=== PATIENT | female | born 1935 | race Caucasian/White ===

== ENCOUNTER → 2018-02-25 11:31 | Outpatient (CLI) | payer OTHER, SELFPAY ==
[2018-02-25 12:53] LABS: Add Manual Diff / Slide Review NO; Basophils Percent Auto 1.3 % (0-2); Hemoglobin 14.7 g/dL (12.0-16.0); Lymphocytes Percent Auto 27.4 % (25-40); Mean Corpuscular HGB Conc 34.1 % (30-36); Mean Corpuscular Hemoglobin 35.5 PG (26-34); Mean Corpuscular Volume 104.2 fL (80-100); Monocytes Percent Auto 10.8 % (3-14); Neutrophils Absolute Auto 3100 /uL (3000-5900); Neutrophils Percent Auto 53.5 % (50-75); Platelet Count 286 X10^3/uL (150-400); Red Blood Cell Count 4.13 X10^6/uL (4.0-5.2); Red Cell Distribution Width 13.3 % (11.6-14.8); White Blood Cell Count 5.8 X10^3/uL (4.5-11.0)
[2018-02-25 13:03] LABS: Alanine Aminotransferase 28 IU/L (9-52); Albumin 4.2 g/dL (3.5-5.0); Albumin Globulin Ratio 1.4 (1.0-2.8); Alkaline Phosphatase 45 U/L (38-126); Aspartate Aminotransferase 35 IU/L (14-36); BUN Creatinine Ratio 23.6 (6-22); Bilirubin Total 0.6 mg/dL (0.2-1.3); Estimated Glomerular Filt Rate 47.6 mL/min (>60); Glucose 89 mg/dL (80-110); HEMOLYSIS 15 (0-50); Potassium 3.8 mmol/L (3.4-5.1); Sodium 143 mmol/L (137-145); Total Protein 7.2 g/dL (6.3-8.2)
== END ==
PROVIDERS: Family Provider Family Medicine; PCP Family Medicine; Visit Provider Internal Medicine Hematology & Oncology
DX: D46.9 Myelodysplastic syndrome, unspecified (principal)
CPT/HCPCS: 36415; 80053; 85025

== ENCOUNTER → 2018-06-20 14:25 | Outpatient (CLI) | payer OTHER, SELFPAY ==
--- NOTE | 2018-06-20 | DI.US.S_ITS ---
PROCEDURE: US ARTERIAL DUPLEX LE BI INDICATIONS: BILATERAL LOWER EXTREMITY NUMBNESS AND TINGLING TECHNIQUE: Color and pulse Doppler interrogation was performed of both lower extremity arterial systems, with image documentation. COMPARISON: None. FINDINGS: Right lower extremity: Common femoral artery: 117 cm/sec, with biphasic flow. Deep femoral artery: 68 cm/sec, with biphasic flow. Proximal superficial femoral artery: 152 cm/sec, with biphasic flow. Mid superficial femoral artery: 143 cm/sec, with biphasic flow. Distal superficial femoral artery: 116 cm/sec, with biphasic flow. Popliteal artery: 72 cm/sec, with biphasic flow. Posterior tibial artery: 61 cm/sec, with biphasic flow. Anterior tibial artery/dorsalis pedis: Occluded Grace-scale imaging description: Scattered plaque Left lower extremity: Common femoral artery: 179 cm/sec, with biphasic flow. Deep femoral artery: 80 cm/sec, with biphasic flow. Proximal superficial femoral artery: 107 cm/sec, with biphasic flow. Mid superficial femoral artery: 124 cm/sec, with biphasic flow. Distal superficial femoral artery: 97 cm/sec, with biphasic flow. Popliteal artery: 93 cm/sec, with biphasic flow. Posterior tibial artery: 66 cm/sec, with biphasic flow. Anterior tibial artery/dorsalis pedis: 51 cm/sec, with biphasic flow. Grace-scale imaging description: Scattered plaque IMPRESSION: 1. Occluded right anterior tibial artery. 2. Otherwise no evidence of arterial insufficiency to the bilateral lower extremities. Dictated by: Mallorie Quesada M.D. on 06/20/2018 at 16:57 Approved by: Mallorie Quesada M.D. on 06/20/2018 at 16:59
== END ==
PROVIDERS: Family Provider Family Medicine; PCP Family Medicine; Visit Provider Family Medicine
DX: R20.0 Anesthesia of skin (principal); R20.2 Paresthesia of skin; I77.1 Stricture of artery
CPT/HCPCS: 93925

== ENCOUNTER → 2019-02-28 14:20 | Oncology outpatient (ONC) | payer OTHER, SELFPAY ==
[2018-03-01 11:52] VITALS: BP 151/73; PULSE 80; RESP 16; TEMP 36.6; O2SAT 97
--- NOTE | 2018-03-01 12:07 | P.PNONC_ITS ---
Diagnosis (1) Myelodysplastic syndrome Diagnosis: 1. History of low-grade myelodysplastic syndrome, IPS score 0. Original bone marrow examination on 09/17/2011. Observation only pursued. 2. History of depression. 3. Hypercholesterolemia. 4. Hypertension. History of Present Illness History Of Present Illness: 03/01/18 12:04 Laine returns today for routine follow-up. Her last visitation here was 1 year ago. She has remained largely stable in the interim. She reports good days and bad days regarding her overall strength and stamina. She denies any dyspnea on exertion. Her recent appetite has been great. She continues to live alone. She has 3 grown children, who live in [place], [place] and [place]. She acknowledges overall that she has been slowing down in recent years. She currently denies any depression. Home Medications and Allergies Home Medications Medication Instructions Recorded Confirmed Type CA PANTOTHENATE/FOLIC ACID/VIT 1 tab PO QDAY #0 03/09/13 History (MULTIVITAMIN) CALCIUM CITRATE (CITRACAL ) 200 mg PO AMCC #0 03/09/13 History FERROUS SULFATE 325 mg PO Q DAY #0 03/09/13 History FOLIC ACID (Folic Acid) 1 mg PO Q DAY #0 03/09/13 History Pyridoxine (#VITAMIN B6) 100 mg PO Q DAY #0 03/09/13 History aspirin #0 03/09/13 History atorvastatin [Lipitor] 5 mg PO HS #0 03/09/13 History cetirizine 10 mg PO PRN #0 03/09/13 History citalopram [Celexa] 20 mg PO QDAY #0 03/09/13 History amlodipine [Norvasc] 5 mg PO QDAY #0 03/02/17 History calcitonin (salmon) 1 puff NS QDAY #0 03/02/17 History cholecalciferol (vitamin D3) 1,000 unit PO DAILY 03/01/18 03/01/18 History [Vitamin D3] mirtazapine [Remeron] 30 mg PO BEDTIME 03/01/18 03/01/18 History nystatin 1 applic TOPICAL TID 03/01/18 03/01/18 History Allergies Allergy/AdvReac Type Severity Reaction Status Date / Time Penicillins Allergy Severe I SWELL Unverified 01/12/18 11:46 UP, HEAVY BREATHING Exam Vital Signs: Vital Signs - 24 hr 03/01/18 11:52 Temperature 97.8 F Pulse Rate 80 Respiratory Rate 16 Blood Pressure 151/73 H Pulse Oximetry 97 Exam: Blood pressure 151/73. Pulse rate 80. Temperature 97.4?. O2 saturation on room air was 97%. Weight 137 lb. Her pupils today were equal and reactive to light. The oropharynx was clear. Both lungs were clear to auscultation and percussion. She displayed no direct percussible spinal tenderness. There is no palpable rib cage tenderness. No pathologic lymphadenopathy was noted today in the neck, chin, supraclavicular or axillary areas. Her abdomen was soft, nontender and without palpable mass effect. Her heart sounds were fine. There was no distal edema. Impression Laine's CBC looks great today. All of her numbers remain very stable. I am quite comfortable today recommending continued surveillance on a yearly basis. I wished her well.
[2019-02-20 13:20] LABS: Add Manual Diff / Slide Review NO; Basophils Absolute Auto 100 /uL (0-100); Eosinophils Absolute Auto 400 /uL (0-450); Eosinophils Percent Auto 5.5 % (2-4); Hematocrit 45.3 % (36-46); Hemoglobin 15.1 g/dL (12.0-16.0); Lymphocytes Absolute Auto 1600 /uL (1100-4500); Lymphocytes Percent Auto 23.7 % (25-40); Mean Corpuscular HGB Conc 33.3 % (30-36); Mean Corpuscular Hemoglobin 34.9 PG (26-34); Mean Corpuscular Volume 104.9 fL (80-100); Monocytes Absolute Auto 700 /uL (0-900); Monocytes Percent Auto 10.9 % (3-14); Neutrophils Absolute Auto 3900 /uL (1500-7000); Neutrophils Percent Auto 58.9 % (50-75); Platelet Count 238 X10^3/uL (150-400); Red Blood Cell Count 4.32 X10^6/uL (4.0-5.2); White Blood Cell Count 6.6 X10^3/uL (4.5-11.0)
[2019-02-20 13:36] LABS: Alanine Aminotransferase 16 IU/L (9-52); Albumin 4.4 g/dL (3.5-5.0); Albumin Globulin Ratio 1.4 (1.0-2.8); Alkaline Phosphatase 46 U/L (38-126); Aspartate Aminotransferase 29 IU/L (14-36); BUN Creatinine Ratio 29.1 (6-22); Bilirubin Total 0.6 mg/dL (0.2-1.3); Blood Urea Nitrogen 32 mg/dL (7-17); Calcium 9.6 mg/dL (8.4-10.2); Carbon Dioxide 27 mmol/L (22-32); Chloride 103 mmol/L (98-107); Estimated Glomerular Filt Rate 47.4 mL/min (>60); Globulin 3.1 g/dL (1.7-4.1); Glucose 97 mg/dL (80-110); HEMOLYSIS 17 (0-50); Sodium 138 mmol/L (137-145); Total Protein 7.5 g/dL (6.3-8.2)
[2019-02-28 14:33] VITALS: BP 148/69; PULSE 65; RESP 18; TEMP 36.4; O2SAT 100
--- NOTE | 2019-02-28 14:43 | P.PNONC_ITS ---
PN -Subjective Interval history: 83-year-old white female with history of low-grade myelodysplastic syndrome, IPSS score 0, had bone marrow aspiration biopsy on 09/17/2011. She has been on active surveillance since. Patient presents here today for scheduled follow-up visit. Patient reported that since her last visit, patient has not had any new changes. Patient reports that she has no nausea or vomiting, no shortness of breath, no chest pain, no abdominal pain, no diarrhea, no constipation. Patient said that she has gained a couple of lb over last 1 year. - Additional ROS All systems PM: reviewed and no additional remarkable complaints except as stated Home Medications and Allergies Home Medications Medication Instructions Recorded Confirmed Type CA PANTOTHENATE/FOLIC ACID/VIT 1 tab PO QDAY #0 03/09/13 History (MULTIVITAMIN) CALCIUM CITRATE (CITRACAL ) 200 mg PO AMCC #0 03/09/13 History FERROUS SULFATE 325 mg PO Q DAY #0 03/09/13 History FOLIC ACID (Folic Acid) 1 mg PO Q DAY #0 03/09/13 History Pyridoxine (#VITAMIN B6) 100 mg PO Q DAY #0 03/09/13 History aspirin #0 03/09/13 History atorvastatin [Lipitor] 5 mg PO HS #0 03/09/13 History cetirizine 10 mg PO PRN #0 03/09/13 History citalopram [Celexa] 20 mg PO QDAY #0 03/09/13 History amlodipine [Norvasc] 5 mg PO QDAY #0 03/02/17 History calcitonin (salmon) 1 puff NS QDAY #0 03/02/17 History cholecalciferol (vitamin D3) 1,000 unit PO DAILY 03/01/18 03/01/18 History [Vitamin D3] mirtazapine [Remeron] 30 mg PO BEDTIME 03/01/18 03/01/18 History nystatin 1 applic TOPICAL TID 03/01/18 03/01/18 History Allergies Allergy/AdvReac Type Severity Reaction Status Date / Time Penicillins Allergy Severe I SWELL Unverified 01/12/18 11:46 UP, HEAVY BREATHING Exam Vital signs: Last Vital Signs Temp 97.5 F L 02/28/19 14:33 Pulse 65 02/28/19 14:33 Resp 18 02/28/19 14:33 BP 148/69 H 05/28/19 14:33 Pulse Ox 100 02/28/19 14:33 ECOG 1 Narrative: Gen: WDWN, NAD, pleasant and cooperative. HEENT: NCAT, EOMI, PERRLA, anicteric sclera. Neck: Supple, No palpable thyromegaly or lymphadenopathy. Respiratory: CTAB, no wheezes audible. No JVD Cardiovascular: RRR, S1 and S2 normal, 4/6 SM aortic valve Abdomen: Soft, NTND, BS normal, no palpable organomegaly Extremities: No LE pitting edema. Lymphatic: no palpable lymph nodes in the neck, axillae, or groins. Neurological: AOx3, CN II-XII grossly intact. No focal motor or sensory deficit. Psychiatric: Normal affect; normal thought process; cooperative, no depression, no anxiety. Results - Labs Laboratory Last Values WBC 6.6 X10^3/uL (4.5-11.0) 02/20/19 13:11 RBC 4.32 X10^6/uL (4.0-5.2) 02/20/19 13:11 Hgb 15.1 g/dL (12.0-16.0) 02/20/19 13:11 Hct 45.3 % (36-46) 02/20/19 13:11 MCV 104.9 fL (80-100) H 02/20/19 13:11 MCH 34.9 PG (26-34) H 02/20/19 13:11 MCHC 33.3 % (30-36) 02/20/19 13:11 RDW 15.0 % (11.6-14.8) H 02/20/19 13:11 Plt Count 238 X10^3/uL (150-400) 02/20/19 13:11 Neut % (Auto) 58.9 % (50-75) 02/20/19 13:11 Lymph % (Auto) 23.7 % (25-40) L 02/20/19 13:11 [place] % (Auto) 10.9 % (3-14) 02/20/19 13:11 Eos % (Auto) 5.5 % (2-4) H 02/20/19 13:11 Baso % (Auto) 1.0 % (0-2) 02/20/19 13:11 Neut # (Auto) 3900 /uL (6638-1150) 02/20/19 13:11 Lymph # (Auto) 1600 /uL (7134-2866) 02/20/19 13:11 [place] # (Auto) 700 /uL (0-900) 02/20/19 13:11 Eos # (Auto) 400 /uL (0-450) 02/20/19 13:11 Baso # (Auto) 100 /uL (0-100) 02/20/19 13:11 Sodium 138 mmol/L (137-145) 02/20/19 13:11 Potassium 4.0 mmol/L (3.4-5.1) 02/20/19 13:11 Chloride 103 mmol/L (98-107) 02/20/19 13:11 Carbon Dioxide 27 mmol/L (22-32) 02/20/19 13:11 BUN 32 mg/dL (7-17) H 02/20/19 13:11 Creatinine 1.10 mg/dL (0.52-1.04) H 02/20/19 13:11 Estimated GFR 47.4 mL/min (>60) L 02/20/19 13:11 BUN/Creatinine Ratio 29.1 (6-22) H 02/20/19 13:11 Glucose 97 mg/dL (80-110) 02/20/19 13:11 Calcium 9.6 mg/dL (8.4-10.2) 02/20/19 13:11 Total Bilirubin 0.6 mg/dL (0.2-1.3) 02/20/19 13:11 AST 29 IU/L (14-36) 02/20/19 13:11 ALT 16 IU/L (9-52) 02/20/19 13:11 Alkaline Phosphatase 46 U/L (38-126) 02/20/19 13:11 Total Protein 7.5 g/dL (6.3-8.2) 02/20/19 13:11 Albumin 4.4 g/dL (3.5-5.0) 02/20/19 13:11 Globulin 3.1 g/dL (1.7-4.1) 02/20/19 13:11 Albumin/Globulin Ratio 1.4 (1.0-2.8) 02/20/19 13:11 - Imaging Additional studies: Procedures Closed [endoscopic] biopsy of rectum (06/22/12) Other resection of rectum (01/12/13) Assessment and Plan (1) Myelodysplastic syndrome 83-year-old with low-grade myelodysplastic syndrome currently on active surveillance. I reviewed the laboratory tests with the patient today. The CBC are within the good range. I will have her come back in about a year for follow-up visit. I will repeat CBC, CMP.
--- NOTE | 2019-10-09 13:18 | ONC.MSW ---
*Sent bereavement card.
== END ==
PROVIDERS: Family Provider Family Medicine; PCP Family Medicine; Visit Provider Internal Medicine Hematology & Oncology
DX: D46.Z Other myelodysplastic syndromes (principal)
CPT/HCPCS: 36415; 80053; 85025; 99213; 99215

== ENCOUNTER 2019-08-08 21:38 | Inpatient (IN) | payer OTHER, SELFPAY ==
[2019-08-08] VITALS (7 sets, daily range): BP systolic 95–140; BP diastolic 46–87; PULSE 103–130; RESP 20–30; TEMP 36.8–37.1; O2SAT 88–94; BMI 21.9
--- NOTE | 2019-08-08 21:53 | ED.SOB ---
HPI - SOB/Dyspnea General Chief Complaint: Shortness of Breath/Dyspnea Stated Complaint: Difficulty breathing Time Seen by Provider: 08/08/19 21:46 Source: patient Mode of arrival: EMS Limitations: no limitations History of Present Illness HPI Narrative: 83-year-old female brought in by EMS for evaluation of shortness of breath patient states that she has been short of breath for the past couple days. She also admitted with questioning that she has had palpitations for the past couple days as well. No chest pain. Some cough. She states that all the symptoms started after she got the flu shot as been feeling fatigued since then. No fevers. Has not tried anything for symptoms prior to arrival. Related Data Home Medications Medication Instructions Recorded Confirmed aspirin 325 mg PO DAILY #0 03/09/13 08/09/19 atorvastatin [Lipitor] 5 mg PO HS #0 03/09/13 08/09/19 calcium carbonate [Calcium 500] 1,000 mg PO DAILY #0 03/09/13 08/09/19 cetirizine 10 mg PO PRN #0 03/09/13 08/09/19 citalopram [Celexa] 20 mg PO QDAY #0 03/09/13 08/09/19 ferrous sulfate 324 mg PO DAILY #0 03/09/13 08/09/19 folic acid 1 mg PO DAILY #0 03/09/13 08/09/19 [id number] 1 cap PO DAILY #0 03/09/13 08/09/19 [Daily Multivitamin] pyridoxine (vitamin B6) 100 mg PO DAILY #0 03/09/13 08/09/19 amlodipine [Norvasc] 5 mg PO QDAY #0 03/02/17 08/09/19 calcitonin (salmon) 1 puff NS QDAY #0 03/02/17 08/09/19 cholecalciferol (vitamin D3) 1,000 unit PO DAILY 03/01/18 08/09/19 [Vitamin D3] mirtazapine [Remeron] 30 mg PO BEDTIME 03/01/18 08/09/19 nystatin 1 applic TOPICAL TID PRN 03/01/18 08/09/19 Allergies Allergy/AdvReac Type Severity Reaction Status Date / Time Penicillins Allergy Severe I SWELL Verified 08/08/19 21:48 UP, HEAVY BREATHING Review of Systems Constitutional Constitutional: Reports fatigue, Denies fever(s), Reports lethargy and Reports malaise Cardiovascular Cardiovascular: Denies chest pain, Reports rapid heart rate, Reports palpitations, Reports dyspnea and Reports dyspnea on exertion Respiratory Respiratory: Reports dyspnea and Reports dyspnea on exertion Gastrointestinal Gastrointestinal: Denies abdominal pain, Denies nausea and Denies vomiting Musculoskeletal Musculoskeletal: Denies myalgias and Denies arthralgias Integumentary/Breasts Skin/Breast: Denies rash Neurologic Neurologic: Denies behavioral changes and Denies confusion Psychiatric Psychiatric: Denies behavioral changes and Denies confusion Endocrine Endocrine: Reports fatigue and Reports palpitations Hematologic/Lymphatic Hematologic/Lymphatic: Denies easy bleeding and Denies easy bruising Patient History Medical History Facial contusion (Inactive) Fracture of neck of humerus (Inactive) Myelodysplastic syndrome (Inactive) Social History Smoking Status: Current some day smoker Exam Initial Vital Signs Initial Vital Signs: Vital Signs Temperature 98.3 F 08/08/19 21:48 Pulse Rate 109 H 08/08/19 21:48 Respiratory Rate 30 H 08/08/19 21:48 Blood Pressure 95/46 L 08/08/19 21:48 Pulse Oximetry 94 08/08/19 21:48 Const General: comfortable Orientation: alert, awake and oriented x3 HENMT Head: normal to inspection and normocephalic Resp Effort & Inspection: not labored and tachypneic Auscultation: clear to auscultation bilaterally Cardio Rate: tachycardic Rhythm: abnormal rhythm irregularly irregular Pulses: radial pulses present GI Inspection: non-distended Palpation: soft Skin Lesions: no lesions Rashes: no rashes Neuro General: alert, awake and oriented x3 Cognition: normal cognition Speech: speech normal Extrem General: normal to inspection and capillary refill normal Psych Appearance: grossly normal and well kempt Scores GCS [place] coma scale eye opening: Spontaneous [place] coma scale verbal response: Orientated Nori coma scale motor response: Obey commands Nori coma scale total score: 15 Course Orders Ordered: ED Orders 08/08/19 21:35 B Type Natriuretic Peptide Stat Complete Blood Count AUTO DIFF Stat Comprehensive Metabolic Panel Stat Lipase Stat Partial Thromboplastin Time Stat Procalcitonin Stat Prothrombin Time INR Stat Troponin I Stat 08/08/19 21:45 Influenza A and B by PCR Rapid Stat 08/08/19 21:52 XR chest 1V Stat EKG-12 Lead Stat 08/08/19 22:48 CT angio chest PE protocol Stat Sodium Chloride (Normal Saline 0.9%) 1,000 mls @ 100 mls/hr IV CONT JOSEPH Last Admin: 08/08/19 22:05 Dose: 100 mls/hr Documented by: ANNMARIE Diltiazem HCl 125 mg/ Dextrose 125 mls @ 5 mls/hr IV TITRATE JOSEPH; Protocol Last Titration: 08/08/19 23:32 Dose: 15 mg/hr, 15 mls/hr Documented by: Titration: 08/08/19 23:25 Dose: 15 mg/hr, 15 mls/hr Documented by: Titration: 08/08/19 23:05 Dose: 10 mg/hr, 10 mls/hr Documented by: Titration: 08/08/19 22:49 Dose: 10 mg/hr, 10 mls/hr Documented by: Admin: 08/08/19 22:22 Dose: 5 mg/hr, 5 mls/hr Documented by: ANNMARIE Ondansetron HCl (Zofran) 4 mg IV Q4HR PRN PRN Reason: Nausea And Vomiting Discontinued Medications Albuterol/Ipratropium (Duoneb) 3 ml INH NOW ONE Stop: 08/08/19 22:49 Last Admin: 08/08/19 22:54 Dose: 3 ml Documented by: ANNMARIE Diltiazem HCl (Cardizem) 10 mg IV NOW ONE Stop: 08/08/19 21:52 Last Admin: 08/08/19 22:05 Dose: 10 mg Documented by: ANNMARIE Furosemide (Lasix) 40 mg IV NOW ONE Stop: 08/08/19 22:49 Last Admin: 08/08/19 23:24 Dose: 40 mg Documented by: ANNMARIE Vital Signs Vital signs: Vital Signs - 8 hr 08/08/19 21:48 08/08/19 22:00 08/08/19 22:05 Temperature 98.3 F Pulse Rate 109 H 121 H 130 H Respiratory Rate 30 H 28 H Blood Pressure 95/46 L 140/87 Blood Pressure [Left Arm] 140/67 Pulse Oximetry 94 90 L 08/08/19 22:22 08/08/19 22:34 08/08/19 22:40 Temperature Pulse Rate 116 H 104 H 104 H Respiratory Rate 28 H Blood Pressure 118/65 Blood Pressure [Left Arm] 132/64 Pulse Oximetry 88 L 90 L 08/08/19 23:45 08/09/19 00:00 Temperature 98.7 F Pulse Rate 103 H 102 H Respiratory Rate 20 23 Blood Pressure Blood Pressure [Left Arm] 140/81 134/65 Pulse Oximetry 94 95 MDM - SOB/Dyspnea Medical Records Attestation: I reviewed the patient's medical records. Lab Data Attestation: I reviewed the patient's lab results. Result diagrams: 08/08/19 21:35 08/08/19 21:35 Labs: Lab Results 08/08/19 08/08/19 08/08/19 Range/Units 21:35 21:35 21:35 WBC 7.8 (4.5-11.0) X10^3/uL RBC 3.65 L (4.0-5.2) X10^6/uL Hgb 13.1 (12.0-16.0) g/dL Hct 38.8 (36-46) % MCV 106.3 H (80-100) fL MCH 36.0 H (26-34) PG MCHC 33.8 (30-36) % RDW 13.5 (11.6-14.8) % Plt Count 271 (150-400) X10^3/uL Neut % (Auto) 63.1 (50-75) % Lymph % (Auto) 20.3 L (25-40) % Rich % (Auto) 10.1 (3-14) % Eos % (Auto) 5.8 H (2-4) % Baso % (Auto) 0.7 (0-2) % Neut # (Auto) 4900 (7293-2939) /uL Lymph # (Auto) 1600 (1386-7252) /uL Rich # (Auto) 800 (0-900) /uL Eos # (Auto) 500 H (0-450) /uL Baso # (Auto) 100 (0-100) /uL PT 11.4 (10.1-12.7) SECONDS INR 1.0 (0.9-1.3) APTT 27 (26.4-36.2) SECONDS Sodium 139 (137-145) mmol/L Potassium 4.2 (3.4-5.1) mmol/L Chloride 104 (98-107) mmol/L Carbon Dioxide 28 (22-32) mmol/L BUN 26 H (7-17) mg/dL Creatinine 1.40 H (0.52-1.04) mg/dL Estimated GFR 35.9 L (>60) mL/min BUN/Creatinine Ratio 18.6 (6-22) Glucose 113 H (80-110) mg/dL Calcium 8.9 (8.4-10.2) mg/dL Total Bilirubin 0.5 (0.2-1.3) mg/dL AST 33 (14-36) IU/L ALT 15 (<35) IU/L Alkaline Phosphatase 46 (38-126) U/L Troponin I 0.016 (0.01-0.034) ng/mL B-Natriuretic Peptide 581 H (<100) Total Protein 7.1 (6.3-8.2) g/dL Albumin 4.0 (3.5-5.0) g/dL Globulin 3.1 (1.7-4.1) g/dL Albumin/Globulin Ratio 1.3 (1.0-2.8) Lipase 253 (23-300) U/L Procalcitonin (<0.5) ng/mL Influenza A & B (PCR) (Negative) 08/08/19 08/08/19 Range/Units 21:35 21:45 WBC (4.5-11.0) X10^3/uL RBC (4.0-5.2) X10^6/uL Hgb (12.0-16.0) g/dL Hct (36-46) % MCV (80-100) fL MCH (26-34) PG MCHC (30-36) % RDW (11.6-14.8) % Plt Count (150-400) X10^3/uL Neut % (Auto) (50-75) % Lymph % (Auto) (25-40) % Rich % (Auto) (3-14) % Eos % (Auto) (2-4) % Baso % (Auto) (0-2) % Neut # (Auto) (4817-7845) /uL Lymph # (Auto) (2349-4485) /uL Rich # (Auto) (0-900) /uL Eos # (Auto) (0-450) /uL Baso # (Auto) (0-100) /uL PT (10.1-12.7) SECONDS INR (0.9-1.3) APTT (26.4-36.2) SECONDS Sodium (137-145) mmol/L Potassium (3.4-5.1) mmol/L Chloride (98-107) mmol/L Carbon Dioxide (22-32) mmol/L BUN (7-17) mg/dL Creatinine (0.52-1.04) mg/dL Estimated GFR (>60) mL/min BUN/Creatinine Ratio (6-22) Glucose (80-110) mg/dL Calcium (8.4-10.2) mg/dL Total Bilirubin (0.2-1.3) mg/dL AST (14-36) IU/L ALT (<35) IU/L Alkaline Phosphatase (38-126) U/L Troponin I (0.01-0.034) ng/mL B-Natriuretic Peptide (<100) Total Protein (6.3-8.2) g/dL Albumin (3.5-5.0) g/dL Globulin (1.7-4.1) g/dL Albumin/Globulin Ratio (1.0-2.8) Lipase (23-300) U/L Procalcitonin 0.05 (<0.5) ng/mL Influenza A & B (PCR) Negative (Negative) Imaging Data Chest x-ray: Radiologist's impression: [address] [address] XRay Report Signed Patient: Laine Arauz [facility]#: [id number] : 5Acct:[id number] Age/Sex: 83 / FDate of Service: 08/08/19 Loc: ED Accession Number: [id number] Procedure: XR chest 1V Ordering Provider: Juancarlos Acevedo D.O. PROCEDURE: XR CHEST 1V INDICATIONS: SHORTNESS OF BREATH TECHNIQUE: One view of the chest was acquired. COMPARISON: [facility], , CHEST 2 VIEW, 10/30/2014, 12:19. CT chest 11/06/2014. CXR 10/30/2014. FINDINGS: Surgical changes and devices: None. Lungs and pleura: Minimal patchy airspace opacity at the left lung base. Lungs otherwise appear clear. No pleural effusions or pneumothorax. Mediastinum: Mediastinal contours appear normal. Aortic arch calcification. Heart size is normal. Bones and chest wall: No suspicious bony lesions. Overlying soft tissues appear unremarkable. IMPRESSION: Minimal patchy air space opacity the left lung base. This most likely represents atelectasis. Dictated by: Franky Ballesteros M.D. on 08/08/2019 at 22:06 Approved by: Franky Ballesteros M.D. on 08/08/2019 at 22:08 CT scan - chest: Radiologist's impression: No PE is identified Indeterminate mediastinal and hilar adenopathy Moderate pleural effusions. Small pericardial effusion Suspect mild interstitial pulmonary edema. Atelectasis and moderate ill-defined consolidation bilateral color represent edema or infection Recommend follow-up ECG Data Attestation: I personally reviewed and interpreted this ECG as follows: Prior ECG tracings: not available for review Interpretation: Atrial fibrillation Ventricular rate of 1 to wait Normal axis Normal QRS Normal QTC ST depressions in V4 V5 V6 MDM Narrative Medical decision making narrative: Patient clinically does not have pneumonia. She is afebrile. Has a normal white blood cell count. Her flu is negative. She is in AFib with RVR. She states she has never been diagnosed with this in the past. She does not know when she would not AFib. She does state that she has been having some palpitations and fast heart rate potentially for the past couple days. She is not on anticoagulation. She denies any chest pain. Clinically is not in heart failure however does have a BNP of 581. There are no prior BNPs. Given the CT scan has concerns for pulmonary edema she was given Lasix. There is no pulmonary embolism and a CT scan. Troponin detectable but negative. This very well could be elevated secondary to her fast heart rate potential over the past couple days. ST depressions laterally in the EKG most likely rate related. Patient was started on Cardizem which decreased her heart rate. She stated that she felt better with this improvement in her heart rate. No indication for antibiotics. Discussed the case with Dr. Mcmahon who is on-call for the patient's primary provider. Will admit under the patient's primary provider per Dr. Mcmahon's request. Discuss the admission with the patient in her diagnosis. She expressed understanding and agreement with plan. Discharge Plan Departure Patient Disposition: Admitted As Inpatient Clinical Impression: Shortness of breath Atrial fibrillation Qualifiers: Atrial fibrillation type: unspecified Qualified Code(s): I48.91 - Unspecified atrial fibrillation Admit Date/Time: 08/09/19 00:20 Admit Provider: Cira Cervantes
[2019-08-08 22:01] LABS: Add Manual Diff / Slide Review NO; Basophils Absolute Auto 100 /uL (0-100); Basophils Percent Auto 0.7 % (0-2); Eosinophils Absolute Auto 500 /uL (0-450); Eosinophils Percent Auto 5.8 % (2-4); Hematocrit 38.8 % (36-46); Hemoglobin 13.1 g/dL (12.0-16.0); Lymphocytes Absolute Auto 1600 /uL (1100-4500); Lymphocytes Percent Auto 20.3 % (25-40); Mean Corpuscular HGB Conc 33.8 % (30-36); Mean Corpuscular Volume 106.3 fL (80-100); Monocytes Absolute Auto 800 /uL (0-900); Monocytes Percent Auto 10.1 % (3-14); Neutrophils Absolute Auto 4900 /uL (1500-7000); Neutrophils Percent Auto 63.1 % (50-75); Platelet Count 271 X10^3/uL (150-400); Red Blood Cell Count 3.65 X10^6/uL (4.0-5.2); Red Cell Distribution Width 13.5 % (11.6-14.8); White Blood Cell Count 7.8 X10^3/uL (4.5-11.0)
[2019-08-08 22:03] LABS: Prothrombin Time 11.4 SECONDS (10.1-12.7)
[2019-08-08 22:05] LABS: PTT Partial Thromboplastin Tim 27 SECONDS (26.4-36.2)
[2019-08-08] MEDS: dilTIAZem 5 MG/ML SDV 10 MG IV (22:05)
[2019-08-08] MEDS: SODIUM CHLORIDE 0.9% 1,000 ML 100 ML IV (22:05)
[2019-08-08 22:06] LABS: Alanine Aminotransferase 15 IU/L (<35); Albumin Globulin Ratio 1.3 (1.0-2.8); Alkaline Phosphatase 46 U/L (38-126); Aspartate Aminotransferase 33 IU/L (14-36); BUN Creatinine Ratio 18.6 (6-22); Bilirubin Total 0.5 mg/dL (0.2-1.3); Blood Urea Nitrogen 26 mg/dL (7-17); Calcium 8.9 mg/dL (8.4-10.2); Carbon Dioxide 28 mmol/L (22-32); Chloride 104 mmol/L (98-107); Estimated Glomerular Filt Rate 35.9 mL/min (>60); Globulin 3.1 g/dL (1.7-4.1); Glucose 113 mg/dL (80-110); Lipase 253 U/L (23-300); Potassium 4.2 mmol/L (3.4-5.1); Sodium 139 mmol/L (137-145); Total Protein 7.1 g/dL (6.3-8.2)
[2019-08-08 22:18] LABS: Troponin I 0.016 ng/mL (0.01-0.034)
[2019-08-08 22:19] LABS: B Type Natriuretic Peptide 581 (<100)
[2019-08-08 22:20] LABS: HEMOLYSIS 52 (0-50)
[2019-08-08] MEDS: dilTIAZem 125 MG in DEXTROSE 5 % IN WATER 100 ML IV (22:22)
[2019-08-08 22:24] LABS: Procalcitonin 0.05 ng/mL (<0.5)
[2019-08-08 22:30] LABS: Influenza A and B by PCR Rapid Negative (Negative)
--- NOTE | 2019-08-08 22:48 | DI.CT.S_ITS ---
PROCEDURE: CT ANGIO CHEST PE PROTOCOL INDICATIONS: shortness of breath, tachycardia TECHNIQUE: After the administration of intravenous contrast, 2 mm thick sections acquired from the pulmonary apices to the posterior costophrenic angles. 3-dimensional maximum intensity projection (MIP) coronal and sagittal reformats were then acquired through the thorax. For radiation dose reduction, the following was used: automated exposure control, adjustment of mA and/or kV according to patient size. COMPARISON: [facility], CT, THORAX WITHOUT CONTRAST, 11/06/2014, 11:46. FINDINGS: Image quality: Excellent. Pulmonary arteries: Pulmonary arteries are normal in size, and demonstrate no intraluminal filling defects to suggest central pulmonary embolism. Lungs and pleura: Mild emphysematous change. Mild to moderate bilateral pleural effusions, left greater than right. Bibasilar atelectasis. Mild pulmonary edema. Mediastinum: Mild cardiomegaly, with left atrial enlargement. Extensive coronary artery calcifications. There is extensive bilateral hilar and mediastinal adenopathy. Individual lymph nodes are not abnormally enlarged. However, there are many lymph nodes present. The distribution is relatively symmetric. There was no lymphadenopathy present on the prior noncontrast chest CT in 2014. Thoracic aorta is normal in caliber and enhancement. Esophagus is normal in caliber, without hiatal hernia. Bones and chest wall: No suspicious bony lesions. Ribs and thoracic spine appear intact throughout. Thyroid gland is unremarkable. No axillary or supraclavicular adenopathy. Abdomen: Visualized upper abdominal solid organs appear normal in the early arterial phase of enhancement. Right upper pole renal cysts. IMPRESSION: 1. No evidence pulmonary emboli. 2. Coronary artery disease. 3. Congestive heart failure. 4. Mediastinal and bilateral hilar adenopathy which was not previously present. This may potentially all be reactive. However, consider lymphoma versus small cell carcinoma. 5. Emphysematous change. Comment: Final report is concordant with preliminary interpretation provided by [facility]. Dictated by: Otf Palomino M.D. on 08/09/2019 at 7:51 Approved by: Otf Palomino M.D. on 08/09/2019 at 8:05
[2019-08-08] MEDS: ALBUTEROL/IPRATROPIUM 3 ML AMPUL INH (22:54)
[2019-08-08] MEDS: FUROSEMIDE 40 MG/4 ML VIAL IV (23:24)
[2019-08-09] VITALS (21 sets, daily range): BP systolic 97–134; BP diastolic 46–84; PULSE 61–106; RESP 17–27; TEMP 36.2–37.2; O2SAT 90–96; BMI 26.2
--- NOTE | 2019-08-09 05:26 | PC.NURSE ---
NOC Shift: Pt admitted for Afib RVR, SOB, cough. Pt AAOX3, complaints of one week of not feeling well, lack of appetite, cough, SOB generalized illness. Pt in Afib RVR rate >100 currently on Diltiazem gtt at 15mg/hr. VSS. Afebrile with increased O2 needs 3L NC, fine crackles in bases and dry hacking cough. Denies home use of O2. Received Lasix IV for elevated BNP in ED with good output. Urine with pungent smell sample sent to lab on hold for possible UA when provider rounds in AM. ICU care.
[2019-08-09] MEDS: dilTIAZem 125 MG in DEXTROSE 5 % IN WATER 100 ML 10 ML IV (06:00)
--- NOTE | 2019-08-09 08:04 | PC.NURSE ---
Addendum entered by Lucero Patel R.N. 08/09/19 14:31: Pt has continued in SR, denies CP, Dr Cervantes into see Pt, order's rec'd. Echo for later today. Pt down to 2L O2. Spo2 94% Coarse lungs with occ exp wheeze. Crackles to bases posteriorly. Pt is comfortable, IV ABX per Dec, started on steroids. Afebrile. Using call light for needs. PT ordered. Update for son, who will be flying in 08/10. Addendum entered by Lucero Patel R.N. 08/09/19 09:03: Pt continues with no CP, SOB with exertion. 3L in place and Spo2 94%. Original Note: Am Shift Pt converted into SB 1AV block, asymptomatic.
[2019-08-09] MEDS: dilTIAZem 30 MG TABLET PO ×2 (10:34→18:00)
[2019-08-09] MEDS: AZITHROMYCIN 250 MG TABLET 500 MG PO (10:36)
[2019-08-09 10:56] LABS: Bacteria Urine None Seen; RBC Urine None Seen (0-5/HPF); WBC Urine None Seen (0-5/HPF)
[2019-08-09 10:57] LABS: Appearance Urine UA CLEAR; Bilirubin Urine UA NEGATIVE (NEGATIVE); Color Urine UA YELLOW; Glucose Urine UA NEGATIVE (Negative); Ketones Urine UA NEGATIVE (NEGATIVE); Leukocyte Esterase Urine UA NEGATIVE (NEGATIVE); Nitrite Urine UA NEGATIVE (Negative); Occult Blood Urine UA NEGATIVE (Negative); Protein Urine UA NEGATIVE (Negative); Specific Gravity Urine UA <=1.005 (1.000-1.035); Urobilinogen Urine UA 0.2 E.U./dL (0.2)
[2019-08-09 11:04] LABS: Culture Indicated Urine Cult Not Indicated; Urine Comments Microscopic Normal
[2019-08-09 11:24] LABS: Hematocrit 37.9 % (36-46); Hemoglobin 12.7 g/dL (12.0-16.0); Mean Corpuscular HGB Conc 33.6 % (30-36); Mean Corpuscular Hemoglobin 35.8 PG (26-34); Mean Corpuscular Volume 106.6 fL (80-100); Platelet Count 269 X10^3/uL (150-400); Red Blood Cell Count 3.56 X10^6/uL (4.0-5.2); Red Cell Distribution Width 13.7 % (11.6-14.8); White Blood Cell Count 5.4 X10^3/uL (4.5-11.0)
[2019-08-09 11:36] LABS: BUN Creatinine Ratio 16.3 (6-22); Blood Urea Nitrogen 26 mg/dL (7-17); Calcium 8.5 mg/dL (8.4-10.2); Carbon Dioxide 28 mmol/L (22-32); Chloride 104 mmol/L (98-107); Estimated Glomerular Filt Rate 30.8 mL/min (>60); Glucose 95 mg/dL (80-110); HEMOLYSIS < 15 (0-50); Potassium 4.3 mmol/L (3.4-5.1); Sodium 140 mmol/L (137-145)
[2019-08-09] MEDS: methylPREDNISolone 125 MG/2 ML VIAL 60 MG IV ×2 (11:41→17:59)
[2019-08-09 11:42] LABS: B Type Natriuretic Peptide 906 (<100)
[2019-08-09] MEDS: CITALOPRAM 20 MG TABLET PO (11:57)
[2019-08-09 11:58] LABS: Neutrophils Absolute Manual 3672 /uL (3000-5900); RBC Morphology Normal Morphology; Total Cells Counted 100
[2019-08-09] MEDS: CEFTRIAXONE 1 GM/50 ML FROZ.PIGGY IV (11:58)
--- NOTE | 2019-08-09 14:36 | PT.IIE ---
Medical History (Last Reviewed 08/09/19 @ 00:47 by Juancarlos Acevedo DO) Facial contusion (Inactive) Fracture of neck of humerus (Inactive) Myelodysplastic syndrome (Inactive) Physical Therapy Inpatient Evaluation/Re-Eval M1 PT/OT-IP Prior Functional Status Start: 08/09/19 16:00 Freq: NEEDED Status: Active Protocol: Document 08/09/19 14:36 AB (Rec: 08/09/19 16:17 AB [id number]) Medical Review Prior Functional Status Medical History Reviewed Yes Communication able to make needs known Mobility and Gait pt stated that she is modified independent with all mobilities and ambulation using 4WW Social History Household Members none Living Arrangements House Number of Floors (Floors) One Floor Number of Stairs To Enter/Railing? no steps to enter Home Environment High Toilet,Walk in Shower, Built-In Shower Seat Home Equipment Four Wheel Walker,Shower Seat without Backrest,Hand Held Shower,Grab Bars In Shower Employment Status Retired Additional Social History Comment pt stated that she has a caregiver from Home instead that comes in every Wed for ~ 3 hours to assist her with housechores and grocery shopping. also stated that she has a friend that she can call if she needs assistance. M2 PT-IP Current Condition Start: 08/09/19 16:00 Freq: NEEDED Status: Active Protocol: Document 08/09/19 14:36 AB (Rec: 08/09/19 16:17 AB [id number]) Physical Therapy Current Condition Current Condition Evaluation Date 08/09/19 Treatment Diagnosis A-fib; SOB; difficulty in walking Onset Date 08/09/19 Precautions Other Precautions O2 sat, SD M3 PT-IP Subjective Start: 08/09/19 16:00 Freq: NEEDED Status: Active Protocol: Document 08/09/19 14:36 AB (Rec: 08/09/19 16:17 AB [id number]) Subjective Physical Therapy Visit Type Type Initial Evaluation Visit Start Time 14:36 Visit Stop Time 14:59 Total Visit Minutes 23 Number of HOMEMAKING REHABILITATION CONSULTANT Visits 0 Physical Therapy Visit Comments Patient Comments pt agreeable to do PT Patient Goals to go home Therapy Pain Assessment Pain Present Pain Present Denied Pain M4 PT-IP Mobility and Gait Start: 08/09/19 16:00 Freq: NEEDED Status: Active Protocol: Document 08/09/19 14:36 AB (Rec: 08/09/19 16:17 AB [id number]) PT-Bed Mobility Assessment Supine to Sit Supine to Sit Maximum Assistance,1 Person Assistance,Head of Bed Elevated Scooting Scooting to Edge of Bed Standby Assistance PT-Transfer Assessment Sit to and From Stand Sit to and from Stand Contact Guard Assistance,1 Person Assistance,Use of Upper Extremities Equipment Transfer Assistive Device Gait Belt,Front Wheeled Walker Orthotic/Prosthetic Devices or Brace: No Transfers Transfer Destination Chair Transfer Technique pt ambulated using FWW Transfer Ability Level of Assist Contact Guard Assistance,1 Person Assistance,Use of Upper Extremities Comments Mobility Comments pt found supine in bed. agreed to do PT. O2 sat with 2L/min : 89%. informed nurse and adjusted to 3L/min prior to mobility. pt. stated that she does not sleep flat in bed and uses 2 big pillows to elevate her head up. pt completed supine to sit with HOB elevated max A and max cues. pt was able to sit on EOB SBA. O2 sat: 89-90% SD 78 . pt completed sit to stand CGA and ambulated in room ~ 25 ft using FWW CGA and pt agreed to sit up on chair afterwards. (+) SOB; O2 sat 89-91% with activity and pt: 78-80 bpm. positioned pt on chair. call light and table placed within reach. Gait Assessment Gait Gait Assistance Required: Contact Guard Assist Distance (Feet) 25 Able to Maintain Weight Bearing Status Yes During Gait Assistive Devices Assistive Device Gait Belt,Front Wheeled Walker Orthotic/Prosthetic Devices or Brace: No Gait Deviations General Gait Pattern Antalgic,Decreased Stride Length,Decreased Feet Clearance Factors Limiting Gait Function Factors Limiting Gait Function Decreased Activity Tolerance, Decreased Strength,Poor Balance,Respiratory Distress PT-Balance Assessment Sitting Balance and Reactions Static Sitting Balance Ability Good Dynamic Sitting Balance Ability Good Standing Balance and Reactions Static Standing Balance Ability Fair Dynamic Standing Balance Ability Fair Device Used FWW M5 PT-IP Objective Assessments Start: 08/09/19 16:00 Freq: NEEDED Status: Active Protocol: Document 08/09/19 14:36 AB (Rec: 08/09/19 16:17 AB [id number]) Orientation Orientation/Cognition Level of Alertness Alert Orientation Name,Place,Situation Language Function Ability No Deficits Noted Safety Awareness Understands Safety Issues Memory Description No Deficits Noted Gross Range of Motion Lower Extremity ROM Assessment Within Functional Limits Strength Lower Extremity Strength Assessment Within Functional Limits Hip 4/5 Knee 4/5 Coordination Assessment Gross Coordination Gross Coordination WNL Sensation Assessment Sensation Gross Sensation WNL Muscle Tone Muscle Tone WNL Yes M6 PT-IP Treatment Start: 08/09/19 16:00 Freq: NEEDED Status: Active Protocol: Document 08/09/19 14:36 AB (Rec: 08/09/19 16:17 AB [id number]) Physical Therapy Treatment Education Education Provided Safety M7 PT-IP Assessment and Plan Start: 08/09/19 16:00 Freq: NEEDED Status: Active Protocol: Document 08/09/19 14:36 AB (Rec: 08/09/19 16:17 AB [id number]) PT Summary Assessment and Plan Potential Rehabilitation Potential Good Status of Condition at Evaluation Evolving Summary Impairments Pain,ROM,Strength,Balance, Coordination,Bed Mobility, Transfers,Gait,Activity Tolerance Assessment Summary pt requiring CGA with mobility using FWW with with decrease activity tolerance affecting mobility and safety. will monitor progress with mobility to determine safe D/C plan. pt plans to go home and will benefit from outpt cardiopulmo rehab if pt goes home. Goals Bed Mobility Goal Independent Transfer Goal Independent,Front Wheeled Walker,Four Wheeled Walker Gait Goal Independent,Front Wheel Walker ,Four Wheel Walker Gait Distance 200 Days to Meet Goals 10 Frequency of Treatment Frequency Of Treatment Once a Day Treatment Plan Physical Therapy Treatment Plan Bed Mobility Training,Transfer Training,Gait Training, Therapeutic Exercise,Balance Retraining,Discharge Planning, Neuromuscular Re-ed, Coordination Retraining Recommendations To Nursing Amount of Assist Needed 1 Person Assist Discharge Recommendations PT Discharge Recommendations Home with Assistance, Outpatient PT Equipment Needed for Home Before FWW if not safe with 4WW Discharge
[2019-08-09] MEDS: guaiFENesin Solution 100 MG/5 ML UDC PO (15:37)
[2019-08-09] MEDS: FUROSEMIDE 40 MG TABLET PO (15:37)
--- NOTE | 2019-08-09 16:28 | CM.DANOTE ---
DCP assessment: EMR reviewed: patient is a 83 yr old female who was admitted for Difficulty breathing new onset CHF. Patients PCP is Dr. Cervantes. Cm met with patient at the bedside and CM explained Role. Patient was alert and oriented during CM visit. patient currently live alone but does have a weekly animal care assistant that comes to her home on Wednesdays for three hours every week. Patient ambulates at home with FWW and is independent with all other ADL's. Patients DPOA is her Son Genesis Arauz who is flying in tomorrow from [place] to be here with the patient. CM discussed D/C plan with the patient and patient stated she wanted to go home and that she doesn't want to go to a SNF. CM discussed patient receiving HH when she D/c and patient was open to the idea. HH list provided to patient and patient stated she has no preference. PT/ OT notes pending. Insurance: [employer]. 2nd self pay Plan: home with HH and personal Caregivers through Home instead when patient is medically stable. CM department will follow up and place HH referral tomorrow 08/10/2019. Jacqueline Burks RN. Discharge Planning/Care Management Discharge Assessment Start: 08/09/19 16:26 Freq: Status: Active Protocol: Document 08/09/19 16:26 (Rec: 08/09/19 16:28 [id number]) Discharge Planning Assessment Assigned Enroller Jacqueline Burks Rn DPOA/Assigned Designee Name Genesis Arauz (son) Advance Directives? Yes Advance Directives on File Yes History Provided By Patient Has Patient been admitted in last 30 No days? Prior Living Arrangements House Household Members none Type of transporation used prior to Drives own vehicle admit Independent with ADL's Yes Is patient alert and oriented? Yes Caregiver for Another No DME Already Rented / Owned Bath Bench,FWW / Walker Patient/Family Preference Home with Home Health Discharge Plan Home with Home Health Referrals Initiated Home Health Additional Comment patient does not have a preference to HH suppliers If patient plan is home with home health No : Has signed face to face form been completed? Medicare Choice List Provided Yes Whiteboard Updated in Patient Room with Yes name and ext. # of Enroller Review Status In Process Next Review Type Continued Stay Review
--- NOTE | 2019-08-09 18:43 | PM.HP.1 ---
History of Present Illness History of Present Illness Date Patient Seen: 08/09/19 Time Patient Seen: 09:30 Chief complaint: Difficulty breathing Narrative: Patient is well known to me. Patient presented to emergency department with worsening shortness of breath and was found to have atrial fibrillation with rapid ventricular rate. She is placed on a diltiazem drip and was admitted to the hospital for further evaluation and treatment. CTA did not show evidence of pulmonary embolus but radiologist called me this morning to tell me that there was hilar lymphadenopathy which was new from prior CT scans. It was also felt that patient had some pulmonary edema related to the AFib with rapid ventricular rate. She has no history of either of these. She attributes her symptoms to when she received the flu vaccine approximately 6 days ago. She had a low-grade fever and then developed a cough and congestion. She denies any chest pain. She denies any syncope or presyncope but had coughing [place] prior to activating her lifeline and urgency alert and was struggling to breathe. On admission she was placed on 4 L of nasal cannula oxygen and this is been decreased to 2 L. She received 40 mg of IV Lasix in the emergency department. At this time she is feeling much better. Past medical history: Peripheral vascular disease status post stenting of bilateral lower extremities 2. Tobacco abuse, continues to smoke just a few cigarettes daily 3. Low-grade myelodysplasia for which she is followed by Oncology. 4. Hypertension 5. Hyperlipidemia 6. COPD. She does not really require any treatment or use inhalers on a regular basis 7. Depression 8. Valvular heart disease 9. Previous right humeral fracture Allergies: Penicillin Past surgical history: 1. Appendectomy 2. Growth on her vocal cords 3. Hysterectomy 4. Colectomy due to prolapse 5. Lower extremity arterial stenting secondary to peripheral vascular disease Health through the behavior: Smokes 2-3 cigarettes daily No illicit drugs Occasional alcohol but no regular basis Fairly active Family history: Negative for lung cancer colon cancer Negative for diabetes Negative coronary artery disease Social history: Patient lives in in a [facility] by herself. She has 2 sons and a daughter. Her daughter lives fairly close and is involved in her life another son lives in [place] and is involved in her life is well Review of systems: Negative for chest pain Negative for syncope or presyncope Negative for any palpitations Positive for shortness of breath and cough and fevers and chills Negative for rash Patient has had a lot of stress lately with caring for her house and problems related to this Denies change in her bowel movement Patient History Medical History Facial contusion (Inactive) Fracture of neck of humerus (Inactive) Myelodysplastic syndrome (Inactive) Family & Social History Social History: household members none Prior Living Arrangements House Safety & Behavioral: Feels Safe in Current Yes Environment Been Physically Hurt or No Threatened By a Person Suicidal Ideation Description None Tobacco & Substance use: Tobacco type cigarettes Smoking Status Current some day smoker alcohol intake frequency a few times a month Substance Use Type does not use Meds Home Medications and Allergies Home Medications Medication Instructions Recorded Confirmed Type aspirin 325 mg PO DAILY #0 03/09/13 08/09/19 History atorvastatin [Lipitor] 5 mg PO HS #0 03/09/13 08/09/19 History calcium carbonate [Calcium 500] 1,000 mg PO DAILY #0 03/09/13 08/09/19 History cetirizine 10 mg PO PRN #0 03/09/13 08/09/19 History citalopram [Celexa] 20 mg PO QDAY #0 03/09/13 08/09/19 History ferrous sulfate 324 mg PO DAILY #0 03/09/13 08/09/19 History folic acid 1 mg PO DAILY #0 03/09/13 08/09/19 History [id number]-[id number] 1 cap PO DAILY #0 03/09/13 08/09/19 History [Daily Multivitamin] pyridoxine (vitamin B6) 100 mg PO DAILY #0 03/09/13 08/09/19 History amlodipine [Norvasc] 5 mg PO QDAY #0 03/02/17 08/09/19 History calcitonin (salmon) 1 puff NS QDAY #0 03/02/17 08/09/19 History cholecalciferol (vitamin D3) 1,000 unit PO DAILY 03/01/18 08/09/19 History [Vitamin D3] mirtazapine [Remeron] 30 mg PO BEDTIME 03/01/18 08/09/19 History nystatin 1 applic TOPICAL TID PRN 03/01/18 08/09/19 History Allergies Allergy/AdvReac Type Severity Reaction Status Date / Time Penicillins Allergy Severe I SWELL Verified 08/08/19 21:48 UP, HEAVY BREATHING Exam Vital Signs (past 8 hours): - 08/09/19 11:00 08/09/19 12:00 08/09/19 14:00 Temperature 97.6 F Pulse Rate 70 72 79 Respiratory Rate 24 24 20 Blood Pressure 119/84 131/67 128/76 Pulse Oximetry 95 93 94 08/09/19 15:35 08/09/19 16:00 Temperature 99.0 F Pulse Rate 71 Respiratory Rate 22 Blood Pressure 117/62 Pulse Oximetry 92 Oxygen Delivery Method Nasal Cannula Oxygen Flow Rate 2 Narrative Exam Narrative: Afebrile, vital signs are stable HEENT: Unremarkable, mucous membranes moist and pink, no mucosal lesions, no white plaques Neck: Supple without adenopathy, thyromegaly, jugular venous distention, bruits Chest: Bibasilar crackles with diffuse rhonchi and prolonged expiratory phase Cor: 3-4 out of 6 systolic ejection murmur heard loudest at the left upper sternal border with radiation to the carotids Regular rate and rhythm. Patient converted early this morning Extremities: No edema, pulses intact Abdomen: Positive bowel sounds, soft, nontender, nondistended, no hepatosplenomegaly Skin: No rashes Objective Labs Result Diagrams: 08/09/19 11:15 08/09/19 11:15 Labs: Laboratory Results - last 24 hr 08/08/19 08/08/19 08/08/19 21:35 21:35 21:35 WBC 7.8 RBC 3.65 L Hgb 13.1 Hct 38.8 MCV 106.3 H MCH 36.0 H MCHC 33.8 RDW 13.5 Plt Count 271 Neut % (Auto) 63.1 Lymph % (Auto) 20.3 L [place] % (Auto) 10.1 Eos % (Auto) 5.8 H Baso % (Auto) 0.7 Neut # (Auto) 4900 Lymph # (Auto) 1600 [place] # (Auto) 800 Eos # (Auto) 500 H Baso # (Auto) 100 Total Counted Seg Neutrophils % Band Neutrophils % Lymphocytes % (Manual) Atypical Lymphs % Monocytes % (Manual) Eosinophils % (Manual) Basophils % (Manual) Neutrophils # (Manual) RBC Morphology PT 11.4 INR 1.0 APTT 27 Sodium 139 Potassium 4.2 Chloride 104 Carbon Dioxide 28 BUN 26 H Creatinine 1.40 H Estimated GFR 35.9 L BUN/Creatinine Ratio 18.6 Glucose 113 H Calcium 8.9 Total Bilirubin 0.5 AST 33 ALT 15 Alkaline Phosphatase 46 Troponin I 0.016 B-Natriuretic Peptide 581 H Total Protein 7.1 Albumin 4.0 Globulin 3.1 Albumin/Globulin Ratio 1.3 Lipase 253 Procalcitonin Urine Color Urine Appearance Urine pH Ur Specific [place] Urine Protein Urine Glucose (UA) Urine Ketones Urine Occult Blood Urine Nitrate Urine Bilirubin Urine Urobilinogen Ur Leukocyte Esterase Urine RBC Urine WBC Urine Bacteria Ur Culture Indicated? Micro UA Comment Nasal Screen MRSA (PCR) Influenza A & B (PCR) 08/08/19 08/08/19 08/09/19 21:35 21:45 01:40 WBC RBC Hgb Hct MCV MCH MCHC RDW Plt Count Neut % (Auto) Lymph % (Auto) [place] % (Auto) Eos % (Auto) Baso % (Auto) Neut # (Auto) Lymph # (Auto) [place] # (Auto) Eos # (Auto) Baso # (Auto) Total Counted Seg Neutrophils % Band Neutrophils % Lymphocytes % (Manual) Atypical Lymphs % Monocytes % (Manual) Eosinophils % (Manual) Basophils % (Manual) Neutrophils # (Manual) RBC Morphology PT INR APTT Sodium Potassium Chloride Carbon Dioxide BUN Creatinine Estimated GFR BUN/Creatinine Ratio Glucose Calcium Total Bilirubin AST ALT Alkaline Phosphatase Troponin I B-Natriuretic Peptide Total Protein Albumin Globulin Albumin/Globulin Ratio Lipase Procalcitonin 0.05 Urine Color Urine Appearance Urine pH Ur Specific [place] Urine Protein Urine Glucose (UA) Urine Ketones Urine Occult Blood Urine Nitrate Urine Bilirubin Urine Urobilinogen Ur Leukocyte Esterase Urine RBC Urine WBC Urine Bacteria Ur Culture Indicated? Micro UA Comment Nasal Screen MRSA (PCR) Negative for mrsa Influenza A & B (PCR) Negative 08/09/19 08/09/19 08/09/19 07:00 11:15 11:15 WBC 5.4 RBC 3.56 L Hgb 12.7 Hct 37.9 MCV 106.6 H MCH 35.8 H MCHC 33.6 RDW 13.7 Plt Count 269 Neut % (Auto) Lymph % (Auto) [place] % (Auto) Eos % (Auto) Baso % (Auto) Neut # (Auto) Lymph # (Auto) [place] # (Auto) Eos # (Auto) Baso # (Auto) Total Counted 100 Seg Neutrophils % 66.0 Band Neutrophils % 2.0 L Lymphocytes % (Manual) 19.0 L Atypical Lymphs % 1.0 H Monocytes % (Manual) 6.0 Eosinophils % (Manual) 5.0 H Basophils % (Manual) 1.0 Neutrophils # (Manual) 3672 RBC Morphology Normal morphology PT INR APTT Sodium 140 Potassium 4.3 Chloride 104 Carbon Dioxide 28 BUN 26 H Creatinine 1.60 H Estimated GFR 30.8 L BUN/Creatinine Ratio 16.3 Glucose 95 Calcium 8.5 Total Bilirubin AST ALT Alkaline Phosphatase Troponin I B-Natriuretic Peptide 906 H Total Protein Albumin Globulin Albumin/Globulin Ratio Lipase Procalcitonin Urine Color Yellow Urine Appearance Clear Urine pH 7.0 Ur Specific [place] <=1.005 Urine Protein Negative Urine Glucose (UA) Negative Urine Ketones Negative Urine Occult Blood Negative Urine Nitrate Negative Urine Bilirubin Negative Urine Urobilinogen 0.2 Ur Leukocyte Esterase Negative Urine RBC None seen Urine WBC None seen Urine Bacteria None seen Ur Culture Indicated? Cult not indicated Micro UA Comment Microscopic normal Nasal Screen MRSA (PCR) Influenza A & B (PCR) Assessment & Plan Assessment & Plan narrative: 83-year-old female Assessment 1. New onset atrial fibrillation with rapid ventricular rate now in sinus rhythm. Plan: Will place her on immediate release diltiazem 30 mg every 6 hours and will likely switch her over to CT tomorrow. Echo, continue telemetry, continue full aspirin and pending the results of the echo will discuss anticoagulation. At this point patient is not interested. I also have concerns given her age and multiple comorbidities Intermediate elevation in troponin I suspect related to the rapid ventricular rate. Will reassess in a.m.. Assessment 2. Pneumonia, suspected community-acquired with negative MRSA negative flu swab Plan: Will start ceftriaxone IV and azithromycin orally Will consult respiratory therapy. Will give oxygen as needed. Will give albuterol as needed. Will start methylprednisolone. Assessment 3. COPD Plan: RT, oxygen, albuterol as needed, methylprednisolone Assessment 4. Depression stable Plan: Continue Remeron and citalopram. Will provide lorazepam as needed Assessment 5. DVT prophylaxis Plan: Lovenox Assessment 6. Pulmonary edema without a history of congestive heart failure suspect related to AFib with rapid ventricular rate Plan: Will repeat BNP. Will give additional oral Lasix 40 mg. Will reassess in a.m. echo Assessment 7. Hilar lymphadenopathy on CT scan Plan: Will treat pneumonia and fluid overload and will reassess with CT scan with contrast and contrast of abdomen and pelvis and if these are negative then will repeat CT scan [address] Assessment 8. Acute renal insufficiency worsened related to Lasix likely Plan: Will continue to monitor Code status: DNR Will consult physical therapy Quality VTE Deep Vein Thrombosis/Pulmonary Embolism Present on Admission: No
[2019-08-09] MEDS: MIRTAZAPINE 15 MG TABLET 30 MG PO (21:13)
[2019-08-09] MEDS: LORATADINE 10 MG TABLET PO (21:13)
[2019-08-10] VITALS (14 sets, daily range): BP systolic 116–147; BP diastolic 60–76; PULSE 68–106; RESP 16–23; TEMP 36.2–36.8; O2SAT 89–99
[2019-08-10] MEDS: dilTIAZem 30 MG TABLET PO ×3 (00:21→13:31)
[2019-08-10] MEDS: methylPREDNISolone 125 MG/2 ML VIAL 60 MG IV ×2 (02:11→09:01)
[2019-08-10 05:27] LABS: Add Manual Diff / Slide Review NO; Basophils Absolute Auto 0 /uL (0-100); Basophils Percent Auto 0.5 % (0-2); Eosinophils Absolute Auto 0 /uL (0-450); Eosinophils Percent Auto 0.1 % (2-4); Hematocrit 37.2 % (36-46); Hemoglobin 12.5 g/dL (12.0-16.0); Lymphocytes Absolute Auto 400 /uL (1100-4500); Lymphocytes Percent Auto 8.8 % (25-40); Mean Corpuscular HGB Conc 33.7 % (30-36); Mean Corpuscular Hemoglobin 35.7 PG (26-34); Monocytes Absolute Auto 100 /uL (0-900); Monocytes Percent Auto 1.9 % (3-14); Neutrophils Absolute Auto 4000 /uL (1500-7000); Neutrophils Percent Auto 88.7 % (50-75); Platelet Count 246 X10^3/uL (150-400); Red Blood Cell Count 3.51 X10^6/uL (4.0-5.2); Red Cell Distribution Width 13.4 % (11.6-14.8); White Blood Cell Count 4.5 X10^3/uL (4.5-11.0)
[2019-08-10 05:36] LABS: BUN Creatinine Ratio 27.9 (6-22); Blood Urea Nitrogen 39 mg/dL (7-17); Calcium 8.6 mg/dL (8.4-10.2); Carbon Dioxide 24 mmol/L (22-32); Chloride 108 mmol/L (98-107); Estimated Glomerular Filt Rate 35.9 mL/min (>60); Glucose 160 mg/dL (80-110); HEMOLYSIS < 15 (0-50); Potassium 3.8 mmol/L (3.4-5.1); Sodium 140 mmol/L (137-145)
[2019-08-10 05:56] LABS: B Type Natriuretic Peptide 853 (<100)
[2019-08-10] MEDS: ENOXAPARIN 30 MG/0.3 ML SYRINGE SUBCUT (08:50)
[2019-08-10] MEDS: CITALOPRAM 20 MG TABLET PO (08:51)
[2019-08-10] MEDS: ASPIRIN 325 MG TABLET PO (08:51)
[2019-08-10] MEDS: CEFTRIAXONE 1 GM/50 ML FROZ.PIGGY IV (09:00)
--- NOTE | 2019-08-10 10:51 | PT.IPTN ---
I dertify that I have reviewed this documentation and is involved with this pt's care. Physical Therapy Treatment Note M2 PT-IP Current Condition Start: 08/09/19 16:00 Freq: NEEDED Status: Active Protocol: Document 08/09/19 14:36 AB (Rec: 08/09/19 16:17 AB [id number]) Physical Therapy Current Condition Current Condition Evaluation Date 08/09/19 Treatment Diagnosis A-fib; SOB; difficulty in walking Onset Date 08/09/19 Precautions Other Precautions O2 sat, MS M3 PT-IP Subjective Start: 08/09/19 16:00 Freq: NEEDED Status: Active Protocol: Document 08/10/19 10:51 MT (Rec: 08/10/19 13:31 MT [email or web address]) Subjective Physical Therapy Visit Type Type Treatment Note Visit Start Time 10:51 Visit Stop Time 11:07 Total Visit Minutes 16 Number of TASSEL CLIPPER Visits 0 Physical Therapy Visit Comments Patient Comments pt agreeable to participate in PT M4 PT-IP Mobility and Gait Start: 08/09/19 16:00 Freq: NEEDED Status: Active Protocol: Document 08/10/19 10:51 MT (Rec: 08/10/19 13:31 MT [id number]) PT-Bed Mobility Assessment Supine to Sit Supine to Sit Standby Assistance,1 Person Assistance Sit to Supine Sit to Supine Standby Assistance,1 Person Assistance Scooting Scooting to Edge of Bed Standby Assistance PT-Transfer Assessment Sit to and From Stand Sit to and from Stand Contact Guard Assistance,1 Person Assistance,Use of Upper Extremities Equipment Transfer Assistive Device Gait Belt,Front Wheeled Walker Orthotic/Prosthetic Devices or Brace: No Transfers Transfer Destination Bed Transfer Technique pt ambulated using FWW Transfer Ability Level of Assist Contact Guard Assistance,1 Person Assistance,Use of Upper Extremities Comments Mobility Comments Pt was found in bed and agreeed to do PT. O2 sats at room air were measured prior to initiating bed mobiltiy and found to be 95. Pt was able to perform bed mobility with SBA and minimal cueing. O2 sats were measured again before ambulation and found to be 93. Pt performed sit to tand with 2WW and CGA with cueing for saftey and pushing up from bed. Pt demonstrated some impulsivity with movements. Gait Assessment Gait Gait Assistance Required: Contact Guard Assist,1 Person Assist Distance (Feet) 120 Able to Maintain Weight Bearing Status Yes During Gait Assistive Devices Assistive Device Gait Belt,Front Wheeled Walker Orthotic/Prosthetic Devices or Brace: No Gait Deviations General Gait Pattern Antalgic,Decreased Stride Length,Decreased Feet Clearance Factors Limiting Gait Function Factors Limiting Gait Function Decreased Activity Tolerance, Decreased Strength,Poor Balance,Respiratory Distress Comments Gait Comments Pt ambulated 120 ft total with 2WW and CGA from and cueing for slowing down movements and keeping 2WW close to her for safety. Pt's O2's were monitored. O2 sats were 93% prior to starting walking. After about 90 ft, pt's O2 sats dropped to 85% and pt staggered a bit and PT pulled up on gait belt to steady pt. She took a standing break and was cued to take deep breaths , and her O2 increased back up to 94% within 15 seconds. She continued to walk for 30 more feet before sitting back down on her bed. following gait training, pt's O2 sats were 91% and she was positioned in supine in her bed with the bed alarm on and call button in reach PT-Balance Assessment Sitting Balance and Reactions Static Sitting Balance Ability Good Dynamic Sitting Balance Ability Good Standing Balance and Reactions Static Standing Balance Ability Fair Dynamic Standing Balance Ability Fair Device Used FWW M5 PT-IP Objective Assessments Start: 08/09/19 16:00 Freq: NEEDED Status: Active Protocol: Document 08/09/19 14:36 AB (Rec: 08/09/19 16:17 AB [id number]) Orientation Orientation/Cognition Level of Alertness Alert Orientation Name,Place,Situation Language Function Ability No Deficits Noted Safety Awareness Understands Safety Issues Memory Description No Deficits Noted Gross Range of Motion Lower Extremity ROM Assessment Within Functional Limits Strength Lower Extremity Strength Assessment Within Functional Limits Hip 4/5 Knee 4/5 Coordination Assessment Gross Coordination Gross Coordination WNL Sensation Assessment Sensation Gross Sensation WNL Muscle Tone Muscle Tone WNL Yes M6 PT-IP Treatment Start: 08/09/19 16:00 Freq: NEEDED Status: Active Protocol: Document 08/10/19 10:51 MT (Rec: 08/10/19 13:31 MT [email or web address]) Physical Therapy Treatment Education Education Provided Safety M7 PT-IP Assessment and Plan Start: 08/09/19 16:00 Freq: NEEDED Status: Active Protocol: Document 08/10/19 10:51 MT (Rec: 08/10/19 13:31 MT [email or web address]) PT Summary Assessment and Plan Potential Rehabilitation Potential Good Summary Impairments Pain,ROM,Strength,Balance, Coordination,Bed Mobility, Transfers,Gait,Activity Tolerance Progress Towards Goals Slow Progress due to Activity Tolerance Assessment Summary Pt demonstrated decreased need for assistance with her bed mobility. Last session pt required maxA and today she required only SBA. She is CGA with a 2WW for her transfers and gait and requires cueing for safety. She tends to be impulsive and fast with movements, and required cueing for slowing down. Continue to monitor pt;s activity tolerance and safety awareness to determine if home with assistance is safe discharge plan for pt. Goals Bed Mobility Goal Independent Transfer Goal Independent,Front Wheeled Walker,Four Wheeled Walker Gait Goal Independent,Front Wheel Walker ,Four Wheel Walker Gait Distance 200 Days to Meet Goals 10 Frequency of Treatment Frequency Of Treatment Once a Day Treatment Plan Physical Therapy Treatment Plan Bed Mobility Training,Transfer Training,Gait Training, Therapeutic Exercise,Balance Retraining,Discharge Planning, Neuromuscular Re-ed, Coordination Retraining Other Recommendations and Next Treatment Assess pt safety with Focus ambulation using 4WW Recommendations To Nursing Amount of Assist Needed 1 Person Assist Discharge Recommendations PT Discharge Recommendations Home with Assistance,Home with 24/7 Assist,SNF Rehab, Outpatient PT Other Discharge Recommendations SNF vs home with 24/7 vs home with assist and HHPT: depending on progress Equipment Needed for Home Before FWW if not safe with 4WW Discharge
--- NOTE | 2019-08-10 11:06 | PC.NURSE ---
Addendum entered by Rizwan Linn R.N. 08/10/19 14:15: Pt ambulated to/from shower room with mostly steady gait. Only unsteady r/t use of fww on carpet. Pt is used to using 4 WW at home. Maintaining SPO2 greater than 93% on RA. Original Note: 1100- Spoke with Dr. Cervantes via telephone. Reported assessment findings: lungs clear/dim, nonproductive/congested cough, titrated to RA with SPO2 95-97% while awake, desats to 88% with sleep (mainly mouth breathing, mild apnea). Discussed labs, UOP. Discussed echo not yet completed. Orders received to administer Lasix IV [address] Cervantes states ok to administer after echo. Also received orders for acute care status with telemetry monitoring.
--- NOTE | 2019-08-10 12:00 | DI.ECHO.S_ITS ---
Echocardiogram Report + + :Name: LUÍS LUND Study Date: 08/10/2019 Height: 65 in : :[facility] Weight: 136 lb : : Gender: Female BSA: 1.7 m2 : :: 1935 Age: 83 yrs BP: 141/67 mmHg: :Reason For Study: AFIB : : Performed By: [facility] Staff : :Referring: CARIE WELLER : + + Interpretation Summary The ejection fraction is estimated to be 50-55%. The left atrium is severely dilated. The mitral valve leaflets are mildly calcified. There is moderate to severe mitral regurgitation. Compared to the prior echo study, there has been an increase in the severity of mitral regurgitation. The aortic valve is moderately calcified. There is moderate aortic stenosis. There is mild aortic regurgitation. There is moderate to severe tricuspid regurgitation. The right ventricular systolic pressure is estimated to be at least 63 mmHg based on an estimated right atrial pressure of 15 mm Hg. Compared to the prior echo exam, there has been an increase in the severity of pulmonary hypertension. Procedure: A two-dimensional transthoracic echocardiogram with color flow and Doppler was performed. The study quality was technically adequate. Comparison is made with the echocardiogram of 08/09/14. The patient was in normal sinus rhythm during the exam. Left Ventricle: The left ventricle is normal in size. There is normal left ventricular wall thickness. The ejection fraction is estimated to be 50-55%. There are no focal wall motion abnormalities. Right Ventricle: The right ventricle is normal in size and function. Atria: The left atrium is severely dilated. Right atrial size is normal. The interatrial septum is intact with no evidence for an atrial septal defect. Mitral Valve: There is moderate to severe mitral annular calcification. The mitral valve leaflets are mildly calcified. The mitral valve area is estimated to be 2.3 cm2 by pressure halft time. There is moderate to severe mitral regurgitation. Compared to the prior echo study, there has been an increase in the severity of mitral regurgitation. Aortic Valve: The aortic valve is trileaflet. The aortic valve is moderately calcified. The peak aortic velocity is 2.71 m/sec. The aortic valve mean gradient is 15.5 mmHg. The calculated aortic valve area is 1.1 cm2. There is moderate aortic stenosis. There is mild aortic regurgitation. Tricuspid Valve: The tricuspid valve is normal in structure and function. There is moderate to severe tricuspid regurgitation. The right ventricular systolic pressure is estimated to be at least 63 mmHg based on an estimated right atrial pressure of 15 mm Hg. Compared to the prior echo exam, there has been an increase in the severity of pulmonary hypertension. Pulmonic Valve: The pulmonic valve is not well visualized. There is trace pulmonic regurgitation. Great Vessels: The aortic root is normal size. The dimensions of the ascending aorta are normal. The pulmonary artery is normal size. The IVC is dilated (diameter is greater than 2.1 cm) and it collapses less than 50% with a sniff. This suggests a high right atrial pressure of 15 mm Hg. Pericardium/ Pleura There is no pericardial effusion. There is no pleural effusion. MMode/2D Measurements & Calculations LVIDd: 5.2 cm LVOT diam: 2.1 cm LVIDs: 3.5 cm Ao root diam: 3.4 cm FS: 31.8 % asc Aorta Diam: 3.2 cm IVSd: 1.2 cm LVPWd: 1.0 cm LV driscoll. diameter/BSA (cm/m^2): 3.1 LV sys. diameter/BSA (cm/m^2): 2.1 LA A2 area: 33.1 cm2 RA long axis: 5.7 cm LA A4 area: 28.2 cm2 RA area: 16.8 cm2 LA length (vol): 6.2 cm RA vol: 42.1 ml LA vol: 127.6 ml RA : 25.1 ml/m2 LA vol index: 76.0 ml/m2 TAPSE: 2.6 cm Doppler Measurements & Calculations Ao V2 max: 271.4 cm/sec LVOT Max Wilfredo: 89.5 cm/sec Ao V2 mean: 183.9 cm/sec LV V1 max P.2 mmHg Ao max P.5 mmHg LV V1 VTI: 23.1 cm Ao mean P.5 mmHg DINO(I,D): 1.2 cm2 Ao V2 VTI: 64.0 cm DINO(V,D): 1.1 cm2 sev ratio: 0.36 DINO indexed to BSA (cm^2/m^2): 0.74 AI P1/2t: 294.5 msec AI dec slope: 318.7 cm/sec2 MV E max wilfredo: 193.7 cm/sec TR max wilfredo: 345.6 cm/sec Med Peak E' Wilfredo: 4.6 cm/sec TR max P.8 mmHg E/E' med: 41.7 PA V2 max: 63.5 cm/sec Lat Peak E' Wilfredo: 5.7 cm/sec PA V2 mean: 42.8 cm/sec E/E' lat: 34.1 PA mean P.83 mmHg E/e' average: 37.9 PA pr(Accel): 41.6 mmHg MV dec time: 0.33 sec PA Accel Time: 0.08 sec MV P1/2t: 94.7 msec MVA(VTI): 2.2 cm2 MV V2 mean: 78.1 cm/sec MV P1/2t max wilfredo: 197.5 cm/sec MV mean P.4 mmHg MVA(P1/2t): 2.3 cm2 MV V2 VTI: 35.5 cm SV(LVOT): 79.6 ml _ Reading Physician:03:50 PM
[2019-08-10] MEDS: FUROSEMIDE 20 MG/2 ML VIAL IV (13:27)
--- NOTE | 2019-08-10 13:36 | PM.PN.1 ---
Subjective Subjective Date Patient Seen: 08/10/19 Time Patient Seen: 13:36 Interval history: Patient is doing much better today. She was able to sleep last night and has been weaned off her oxygen from 2 L nasal cannula to room air. Her O2 sats are in the upper 90s on room air except when she is sleeping she tends to breathe through her mouth and saturations 88-89. She feels her cough is improved. She is overall feeling much better. She continues in sinus rhythm through the night but did have about 4 beats of AFib while she was sleeping. A 12 point review of systems is negative Negative for any GI complaints She is tolerating p.o. without difficulty No difficulty with bowel movement No fever No rash No chest pain Exam Vital Signs (past 8 hours): - 08/10/19 05:51 08/10/19 06:16 08/10/19 08:00 Temperature 97.1 F L Pulse Rate 71 68 Respiratory Rate 20 Blood Pressure 129/68 116/65 Pulse Oximetry 95 95 08/10/19 08:28 08/10/19 09:15 08/10/19 12:00 Temperature 97.7 F 98.2 F Pulse Rate 68 74 Respiratory Rate 23 20 Blood Pressure 126/60 141/67 H Pulse Oximetry 93 99 94 Oxygen Delivery Method Nasal Cannula Oxygen Flow Rate 2 Narrative Exam Narrative: Patient appears brighter today, more energetic. She is alert and oriented x3 sitting in the hospital chair without oxygen with no increased work of breathing HEENT: Unremarkable no mucosal lesions Neck: Supple without adenopathy Chest: Improved air exchange with diminished rhonchi and decreased breath sounds at the bases but no crackles and no wheezes Cor: Regular rate and rhythm with unchanged murmur, echo pending Abdomen: Positive bowel sounds, soft, nontender, nondistended, no hepatosplenomegaly Extremities: No edema, pulses intact Neurologic exam nonfocal Objective Labs Result Diagrams: 08/10/19 04:58 08/10/19 04:58 Labs: Laboratory Results - last 24 hr 08/10/19 08/10/19 08/10/19 04:58 04:58 04:58 WBC 4.5 RBC 3.51 L Hgb 12.5 Hct 37.2 MCV 106.0 H MCH 35.7 H MCHC 33.7 RDW 13.4 Plt Count 246 Neut % (Auto) 88.7 H D Lymph % (Auto) 8.8 L [place] % (Auto) 1.9 L Eos % (Auto) 0.1 L Baso % (Auto) 0.5 Neut # (Auto) 4000 Lymph # (Auto) 400 L [place] # (Auto) 100 Eos # (Auto) 0 Baso # (Auto) 0 Sodium 140 Potassium 3.8 Chloride 108 H Carbon Dioxide 24 BUN 39 H Creatinine 1.40 H Estimated GFR 35.9 L BUN/Creatinine Ratio 27.9 H Glucose 160 H Calcium 8.6 B-Natriuretic Peptide 853 H Assessment & Plan Assessment & Plan narrative: 83-year-old female Assessment 1. Atrial fibrillation with rapid ventricular rate. Patient converted with IV diltiazem with an approximately 12 hours. She has continued in normal sinus rhythm for another 24 hours. She is on diltiazem immediate release 30 mg every 6 hours and is tolerating this without any problems. Her heart rate has been in the 60s to 80s and blood pressure has been stable. Her echo is pending. We discussed anticoagulation at length the reason and the decrease incidence of CVA and patient adamantly declines. We will stop the immediate release and placed on diltiazem CD 100 20 mg starting at 9:00 tonight. We will likely then send her home on the 120 mg dosing daily and will stop her outpatient amlodipine. She might need more coverage for her blood pressure. We will just have to see how things go. Assessment 2. Suspected pneumonia. She seems to be improving with IV ceftriaxone, oral azithromycin and IV prednisone. She is now off oxygen Plan: Will stop IV ceftriaxone and put her on Ceftin 500 mg twice daily. Will continue the azithromycin 250 mg daily for 4 more days. Will stop the IV Solu-Medrol and start her on prednisone 40 mg daily and then do a wean from here. She will start the oral prednisone tomorrow. She will continue with RT. Assessment 3. Acute renal insufficiency improved Plan: Will continue to monitor Assessment for pulmonary edema suspect related to AFib with RVR. Echo is pending. She does not have a history of congestive heart failure. She has been effectively diuresed. Her exam is improved. She received additional 20 mg IV Lasix today. We will reassess in the morning. Assessment 5. Hypertension. Will likely send home on diltiazem CD 100 20 mg and will stop the amlodipine. She may need more coverage. Perhaps simply increasing the diltiazem will work. Assessment 6. Depression stable Plan: Continue on the same Remeron and citalopram Assessment 7. DVT prophylaxis Plan: Continue with Lovenox Assessment 8. Hyperlipidemia stable Plan: Continue on the Lipitor Assessment 9. Hilar lymphadenopathy could be related to infection or pulmonary edema except drip. Plan: Discussed with patient we do in 1 month we will do a CT with contrast of her chest abdomen and pelvis. Assessment 10. Myelodysplasia, low-grade, no acute issues Plan: Will follow Quality VTE Deep Vein Thrombosis/Pulmonary Embolism Present on Admission: No
[2019-08-10] MEDS: cefUROXime 250 MG TABLET 500 MG PO ×2 (13:43→21:12)
[2019-08-10] MEDS: AZITHROMYCIN 250 MG TABLET PO (13:43)
[2019-08-10] MEDS: dilTIAZem CD 120 MG CAP PO (19:43)
[2019-08-10] MEDS: MIRTAZAPINE 15 MG TABLET 30 MG PO (21:12)
[2019-08-10] MEDS: LORATADINE 10 MG TABLET PO (21:12)
--- NOTE | 2019-08-10 22:44 | PC.NURSE ---
2100- Patient noted to be in AFib/Flutter CVR. Diltiazem 120mg CD given early. Patient does go over 100 but does not sustain there. Will monitor.
[2019-08-11] VITALS (10 sets, daily range): BP systolic 111–126; BP diastolic 56–86; PULSE 89–118; RESP 17–20; TEMP 36.2–36.8; O2SAT 92–96
[2019-08-11 05:24] LABS: Add Manual Diff / Slide Review NO; Basophils Absolute Auto 0 /uL (0-100); Basophils Percent Auto 0.2 % (0-2); Eosinophils Absolute Auto 0 /uL (0-450); Hematocrit 37.7 % (36-46); Hemoglobin 12.6 g/dL (12.0-16.0); Lymphocytes Absolute Auto 500 /uL (1100-4500); Lymphocytes Percent Auto 4.9 % (25-40); Mean Corpuscular HGB Conc 33.5 % (30-36); Mean Corpuscular Hemoglobin 35.6 PG (26-34); Mean Corpuscular Volume 106.5 fL (80-100); Monocytes Absolute Auto 600 /uL (0-900); Neutrophils Absolute Auto 9100 /uL (1500-7000); Neutrophils Percent Auto 88.9 % (50-75); Platelet Count 289 X10^3/uL (150-400); Red Blood Cell Count 3.54 X10^6/uL (4.0-5.2); Red Cell Distribution Width 13.5 % (11.6-14.8); White Blood Cell Count 10.2 X10^3/uL (4.5-11.0)
[2019-08-11 05:31] LABS: BUN Creatinine Ratio 32.7 (6-22); Blood Urea Nitrogen 49 mg/dL (7-17); Calcium 8.2 mg/dL (8.4-10.2); Carbon Dioxide 23 mmol/L (22-32); Chloride 110 mmol/L (98-107); Estimated Glomerular Filt Rate 33.2 mL/min (>60); Glucose 132 mg/dL (80-110); HEMOLYSIS < 15 (0-50); Potassium 3.6 mmol/L (3.4-5.1); Sodium 139 mmol/L (137-145)
[2019-08-11] MEDS: predniSONE 20 MG TABLET 40 MG PO (08:25)
[2019-08-11] MEDS: ENOXAPARIN 30 MG/0.3 ML SYRINGE SUBCUT (08:26)
[2019-08-11] MEDS: CITALOPRAM 20 MG TABLET PO (08:26)
[2019-08-11] MEDS: cefUROXime 250 MG TABLET 500 MG PO ×2 (08:26→21:20)
[2019-08-11] MEDS: AZITHROMYCIN 250 MG TABLET PO (08:26)
[2019-08-11] MEDS: ASPIRIN 325 MG TABLET PO (08:26)
[2019-08-11] MEDS: dilTIAZem CD 120 MG CAP PO ×2 (08:27→14:00)
--- NOTE | 2019-08-11 09:53 | PT.IPTN ---
Physical Therapy Treatment Note M2 PT-IP Current Condition Start: 08/09/19 16:00 Freq: NEEDED Status: Active Protocol: Document 08/09/19 14:36 AB (Rec: 08/09/19 16:17 AB [id number]) Physical Therapy Current Condition Current Condition Evaluation Date 08/09/19 Treatment Diagnosis A-fib; SOB; difficulty in walking Onset Date 08/09/19 Precautions Other Precautions O2 sat, NE M3 PT-IP Subjective Start: 08/09/19 16:00 Freq: NEEDED Status: Active Protocol: Document 08/11/19 09:53 AB (Rec: 08/11/19 10:51 AB [id number]) Subjective Physical Therapy Visit Type Type Treatment Note Visit Start Time 09:53 Visit Stop Time 10:09 Total Visit Minutes 16 Number of FORM LAYER Visits 0 Physical Therapy Visit Comments Patient Comments pt agreeable to do PT M4 PT-IP Mobility and Gait Start: 08/09/19 16:00 Freq: NEEDED Status: Active Protocol: Document 08/11/19 09:53 AB (Rec: 08/11/19 10:51 AB [id number]) PT-Bed Mobility Assessment Supine to Sit Supine to Sit Standby Assistance,Head of Bed Elevated PT-Transfer Assessment Sit to and From Stand Sit to and from Stand Contact Guard Assistance Equipment Transfer Assistive Device Gait Belt,Front Wheeled Walker Orthotic/Prosthetic Devices or Brace: No Comments Mobility Comments Pt using 2L/min O2. (+) SOB but O2 sat at 96%. pt completed supine to sit SBA with HOB elevated. nurse stated that pt can be off O2 and to monitor sats. O2 sat at room air with O2 off for ~ 1 min: 96%. pt completed sit to stand CGA. with initial unsteadiness requiring CGA to min A for stability. pt ambulated ~ 75 ft using FWW CGA and cues to slow down and for safety. O2 sat maintained at 96-97% HR: 108 to 134 Gait Assessment Gait Gait Assistance Required: Contact Guard Assist Distance (Feet) 75 Able to Maintain Weight Bearing Status Yes During Gait Assistive Devices Assistive Device Gait Belt,Front Wheeled Walker Orthotic/Prosthetic Devices or Brace: No Gait Deviations General Gait Pattern Decreased Feet Clearance Factors Limiting Gait Function Factors Limiting Gait Function Decreased Activity Tolerance, Decreased Strength,Poor Balance,Poor Safety Awareness, Respiratory Distress M5 PT-IP Objective Assessments Start: 08/09/19 16:00 Freq: NEEDED Status: Active Protocol: Document 08/09/19 14:36 AB (Rec: 08/09/19 16:17 AB [id number]) Orientation Orientation/Cognition Level of Alertness Alert Orientation Name,Place,Situation Language Function Ability No Deficits Noted Safety Awareness Understands Safety Issues Memory Description No Deficits Noted Gross Range of Motion Lower Extremity ROM Assessment Within Functional Limits Strength Lower Extremity Strength Assessment Within Functional Limits Hip 4/5 Knee 4/5 Coordination Assessment Gross Coordination Gross Coordination WNL Sensation Assessment Sensation Gross Sensation WNL Muscle Tone Muscle Tone WNL Yes M6 PT-IP Treatment Start: 08/09/19 16:00 Freq: NEEDED Status: Active Protocol: Document 08/11/19 09:53 AB (Rec: 08/11/19 10:51 AB [id number]) Physical Therapy Treatment Education Education Provided Safety M7 PT-IP Assessment and Plan Start: 08/09/19 16:00 Freq: NEEDED Status: Active Protocol: Document 08/11/19 09:53 AB (Rec: 08/11/19 10:51 AB [id number]) PT Summary Assessment and Plan Potential Rehabilitation Potential Fair Summary Impairments Strength,Balance,Bed Mobility, Transfers,Gait,Activity Tolerance Progress Towards Goals Slow Progress due to Medical Issues,Slow Progress due to Activity Tolerance Assessment Summary pt progressing slowly requiring CGA with mobility but continues to have decrease activity tolerance affecting mobility and independence. d/ c plan depending on progress Goals Bed Mobility Goal Independent Transfer Goal Independent,Front Wheeled Walker,Four Wheeled Walker Gait Goal Independent,Front Wheel Walker ,Four Wheel Walker Gait Distance 200 Days to Meet Goals 10 Frequency of Treatment Frequency Of Treatment Once a Day Treatment Plan Physical Therapy Treatment Plan Bed Mobility Training,Transfer Training,Gait Training, Therapeutic Exercise,Balance Retraining,Discharge Planning, Neuromuscular Re-ed, Coordination Retraining Other Recommendations and Next Treatment Assess pt safety with Focus ambulation using 4WW Recommendations To Nursing Amount of Assist Needed 1 Person Assist Discharge Recommendations PT Discharge Recommendations Home with Assistance,Home with 24/7 Assist,SNF Rehab, Outpatient PT Other Discharge Recommendations SNF vs home with 24/7 vs home with assist and HHPT: depending on progress Equipment Needed for Home Before FWW if not safe with 4WW Discharge
--- NOTE | 2019-08-11 11:00 | PC.NURSE ---
Addendum entered by Rizwan Linn R.N. 08/11/19 13:44: 1340- Called to Dr. Mendenhall' office and left message regarding pt HR increasing intermittently to 120s afib and staying consistently over 100. Pt denies symptoms. BP stable. Rec'd call back at 1350. Reported findings. Orders received for one time dose of cardizem CR PO 120 mg now. Original Note: 919- Dr. Mendenhall rounded. Reported assessment findings, lung assessment, O2 needs, tele showing afib rates 100-110s, reviewed diltiazem dosing, reported labs including kidney function, reviewed previous doses of lasix, reviewed I/Os with daily weights. Dr. Mendenhall states will hold off on add'l lasix dosing today in light of labs, monitor BP to ensure pt able to tolerate current dose of diltiazem, monitor HR. Orders received for AM labs. 1000- Pt ambulated with PT using fww/gait belt around nurse's station. Pt noted to be mildly tachypneic with RR 23-35 and tachycardic to 120s, afib, on telemetry. Pt was able to maintain O2 sats of 97% on RA during activity. Upon completion of walking, pt sitting up to chair with O2 sats consistently 97%. After resting for about 10 minutes, HR decreased 90s-110. Pt denies shortness of breath at rest. Denies palpitations, chest pain, chest pressure, dizziness, lightheadedness. Call light in easy reach. Supportive son, Genesis, at bedside.
--- NOTE | 2019-08-11 14:49 | CM.DPC ---
DCP HH Planning Per MD, pt continues to make progress and working with therapy but not stable for d/c yet today. Per PT, pt mobilized better today and recommending SNF vs home with 24/7 and HH pending progress. SW met bedside with pt and son and explained role and son confirms that he fly out from [place] and is making himself available for a long amount of time to stay with pt at d/c to assist and when he has to fly back home then pt's Dtr will stay with her if needed. Son confirms that he spoke to [facility] and they will assess pt once she returns home to determine if increased hours needed and pt and son are agreeable with increasing private paid caregivers if needed as pt only has CG once a week for 3 hours. Pt confirms that she does not want to go to SNF or feel its needed but very agreeable with HH. Pt has no HH preference after reviewing the HH Choice List and SW made referral to [facility] based on [facility]endor Calendar but F2F and MD orders still needed and SW completed F2F and placed copy on pt's chart for MD to sign. Son confirms that he feels comfortable with d/c home with him to stay 24/7 for a few weeks and he will help with coordinating with [facility] to increase CG hours and he would like HH as well. Plan: SW to follow for [facility] review of pt to confirm they can accept at d/c and MD to sign F2F and MD orders to fax to [facility] when available. JONATHAN Fonseca
--- NOTE | 2019-08-11 18:12 | PM.PN.1 ---
Subjective Subjective Date Patient Seen: 08/11/19 Time Patient Seen: 08:29 Interval history: Patient 83-year-old female admitted with acute shortness of breath and multiple medical problems found to have be in AFib with a rapid ventricular rate. His elected not to have anticoagulation history of COPD heart disease hypertension depression, history of myelodysplasia, smoking. Was it was initially treated with diltiazem drip rate control was established and patient was given a extended release dose of Cardizem this morning at 1:20 a.m.. When I saw are heart rate still in the 120 range. Gave her 2nd dose of the 120. One recheck to in the evening her heart rate had slowed down to 100 or slightly below but then had increased again by 6:00 p.m. into the 120 range. Will add low-dose beta-gianni in addition to and anticipate a probably dose of 240 in the morning of her diltiazem. Exam Vital Signs (past 8 hours): - 08/11/19 11:35 08/11/19 13:30 08/11/19 15:46 Temperature 97.4 F L 98.1 F Pulse Rate 100 H 118 H 111 H Respiratory Rate 17 20 20 Blood Pressure 124/70 119/69 118/73 Pulse Oximetry 93 96 93 08/11/19 16:00 Temperature Pulse Rate Respiratory Rate Blood Pressure Pulse Oximetry 93 Oxygen Delivery Method Room Air Oxygen Flow Rate 0 Narrative Exam Narrative: Patient is sitting at bedside speaking in complete sentences definite hoarse voice and a slight cough. PERRLA EOMs intact Speech clear Lungs with decreased breath sounds throughout but no rales CV is shows irregular rapid heart rate with a 2/6 systolic murmur. Id Abdomen no mass nontender bowel sounds present Skin without any breakdowns Neuro shows patient to be alert oriented speech clear sensory and motor symmetrical cognition intact Objective Labs Result Diagrams: 08/11/19 05:01 08/11/19 05:01 Labs: Laboratory Results - last 24 hr 08/11/19 08/11/19 05:01 05:01 WBC 10.2 D RBC 3.54 L Hgb 12.6 Hct 37.7 MCV 106.5 H MCH 35.6 H MCHC 33.5 RDW 13.5 Plt Count 289 Neut % (Auto) 88.9 H Lymph % (Auto) 4.9 L [place] % (Auto) 6.0 Eos % (Auto) 0.0 L Baso % (Auto) 0.2 Neut # (Auto) 9100 H Lymph # (Auto) 500 L [place] # (Auto) 600 Eos # (Auto) 0 Baso # (Auto) 0 Sodium 139 Potassium 3.6 Chloride 110 H Carbon Dioxide 23 BUN 49 H Creatinine 1.50 H Estimated GFR 33.2 L BUN/Creatinine Ratio 32.7 H Glucose 132 H Calcium 8.2 L Assessment & Plan Assessment & Plan narrative: Assessment 1.. Atrial fibrillation new onset with rapid ventricular rate. Meds being titrated at this point and getting rate down into the 110-120 range consistently with patient not being symptomatic. No pain negative cardiac enzymes. Have given patient 240 mg of the CD form of diltiazem and still have rate at 120. I suspect it will take a day or 2 to reach a therapeutic dose on that particular formulation. I have also given her this evening some low-dose metoprolol see if that assist as well. Probably needs to 140 of the diltiazem at least an on for her morning dose Assessment 2. COPD not requiring respiratory treatment maintaining good oxygenation. Will follow Assessment 3. Smoker patient continues to be a smoker low she knowledge is 3 or 4 cigarettes a day quite probably needs more than that. Will monitor Assessment 4. Peripheral vascular disease stents have been placed Pietro this probably relates in large part to her smoking disease. Continue with current meds Assessment 5. Depression will stay with a regular medicines that she uses for that at this point would seem stable. Assessment 6. History of myeloid dysplasia count seemed to be fairly to monitor Assessment 7. Hypertension have discontinued her amlodipine for blood pressure and added the diltiazem for combination blood pressure and rate control. Assessment 8. Hyperlipidemia continue with current medication for that. Time Spent With Patient Time with patient: Greater than 35 minutes Quality VTE Deep Vein Thrombosis/Pulmonary Embolism Present on Admission: No
[2019-08-11] MEDS: METOPROLOL ER 25 MG TABLET PO (18:25)
[2019-08-11] MEDS: MIRTAZAPINE 15 MG TABLET 30 MG PO (21:20)
[2019-08-11] MEDS: LORATADINE 10 MG TABLET PO (21:20)
--- NOTE | 2019-08-11 21:37 | PC.NURSE ---
2129- Patient is having loose stool mixed with urine. Unable to measure accurately. Day shift did guiac no blood in stool. Will monitor.
[2019-08-12] VITALS (8 sets, daily range): BP systolic 112–146; BP diastolic 54–81; PULSE 78–100; RESP 15–20; TEMP 36.2–37.1; O2SAT 93–98
[2019-08-12 05:07] LABS: Alanine Aminotransferase 28 IU/L (<35); Albumin 3.4 g/dL (3.5-5.0); Albumin Globulin Ratio 1.3 (1.0-2.8); Alkaline Phosphatase 34 U/L (38-126); Aspartate Aminotransferase 35 IU/L (14-36); Bilirubin Total 0.3 mg/dL (0.2-1.3); Blood Urea Nitrogen 49 mg/dL (7-17); Calcium 8.4 mg/dL (8.4-10.2); Carbon Dioxide 25 mmol/L (22-32); Chloride 109 mmol/L (98-107); Estimated Glomerular Filt Rate 35.9 mL/min (>60); Globulin 2.7 g/dL (1.7-4.1); Glucose 93 mg/dL (80-110); HEMOLYSIS < 15 (0-50); Magnesium 2.7 mg/dL (1.6-2.3); Potassium 4.7 mmol/L (3.4-5.1); Sodium 142 mmol/L (137-145); Total Protein 6.1 g/dL (6.3-8.2)
[2019-08-12] MEDS: AZITHROMYCIN 250 MG TABLET PO (09:39)
[2019-08-12] MEDS: ASPIRIN 325 MG TABLET PO (09:39)
[2019-08-12] MEDS: ENOXAPARIN 30 MG/0.3 ML SYRINGE SUBCUT (09:39)
[2019-08-12] MEDS: cefUROXime 250 MG TABLET 500 MG PO ×2 (09:39→20:18)
[2019-08-12] MEDS: CITALOPRAM 20 MG TABLET PO (09:39)
[2019-08-12] MEDS: dilTIAZem CD 120 MG CAP PO (09:39)
[2019-08-12] MEDS: METOPROLOL ER 25 MG TABLET PO (09:40)
[2019-08-12] MEDS: predniSONE 20 MG TABLET 40 MG PO (09:40)
--- NOTE | 2019-08-12 10:29 | P.PN_ITS ---
Subjective Subjective Date Patient Seen: 08/12/19 Time Patient Seen: 10:29 Interval history: Patient is seen with her son, Genesis, who has flow in from [place] to help her transition to home. Patient reports that she is feeling better. She has been up and ambulating with PT. Appetite is ?excellent.? Denies nausea or vomiting. Not having chest pain or shortness of breath. Nursing has no overnight concerns. Patient reports that she had from rheumatic fever as a child and has had a murmur since then. Exam Vital Signs (past 8 hours): - 08/12/19 04:30 08/12/19 09:00 Temperature 98.8 F 98.2 F Pulse Rate 93 H 88 Respiratory Rate 15 20 Blood Pressure 121/72 123/54 L Pulse Oximetry 95 93 Oxygen Delivery Method Room Air Oxygen Flow Rate 0 Narrative Exam Narrative: GENERAL: Alert and oriented, appearing stated age and in no acute distress. HEENT: Head normocephalic/atraumatic. LUNGS: Adventitious sounds heard throughout with bilateral wheezes. CV: Normal S1 and S2 with regular rate and rhythm, 3/5 systolic murmur, no rubs or gallops. ABDOMEN: Soft, non-tender, non-distended, no organomegaly. Positive bowel sounds. EXTREMITIES: No clubbing, cyanosis, or edema. NEURO: Cranial nerves II through XII grossly intact, no focal deficits. PSYCH: Alert and oriented x 3. SKIN: No concerning lesions. Objective Labs Result Diagrams: 08/12/19 11:09 08/12/19 04:35 Labs: Laboratory Results - last 24 hr 08/12/19 04:35 Sodium 142 Potassium 4.7 Chloride 109 H Carbon Dioxide 25 BUN 49 H Creatinine 1.40 H Estimated GFR 35.9 L BUN/Creatinine Ratio 35.0 H Glucose 93 Calcium 8.4 Magnesium 2.7 H Total Bilirubin 0.3 AST 35 ALT 28 Alkaline Phosphatase 34 L Total Protein 6.1 L Albumin 3.4 L Globulin 2.7 Albumin/Globulin Ratio 1.3 Assessment & Plan Assessment & Plan narrative: Assessment 1. New onset atrial fibrillation with rapid ventricular rate now in sinus rhythm. Upon admission, patient was paced on diltiazem immediate release 30 mg p.o. q.6 hours and converted into sinus rhythm after 12 hours. She remained in sinus rhythm for 24 hours and was switched to diltiazem extended release 120 mg PO qd on HD#2. However, her heart rate was uncontrolled in the 120s and she was given an additional evening dose of diltiazem extended release 120 mg PO qd. On HD#3, her heart rate was still in the 120s and metoprolol 25 mg PO qd was added with good effect. For the last 24 hours, patient has been in sinus rhythm with a normal rate. Echocardiogram on 08/10/2019 showed an ejection fraction of 50-55%, severely dilated left atrium, moderate to severe mitral regurgitation, which is increased from the prior study, moderate aortic regurgitation, moderate to severe tricuspid regurgitation and pulmonary hypertension. Again discussed anticoagulation, patient again declined as she has a friend who on anticoagulation. Plan: Continue diltiazem extended release 120 mg PO qd and metoprolol 25 mg PO qd. Assessment 2. Pneumonia, suspected community-acquired with negative MRSA and negative flu swab Plan: Continue oral Ceftin. Supportive therapy with oxygen and albuterol. RT/PT consulting. Assessment 3. COPD Plan: RT, oxygen, albuterol as needed, prednisone. Assessment 4. Depression stable Plan: Continue Remeron and citalopram. Will provide lorazepam as needed. Assessment 5. DVT prophylaxis Plan: Lovenox. Rib fluid Assessment 6. Pulmonary edema with no clinical signs of heart failure. BNP stable throughout admission. Plan: BUN and creatinine elevated, no peripheral edema, will hold off on lasix. Assessment 7. Hilar lymphadenopathy on CT scan Plan: Treating pneumonia and fluid overload acutely. Will reassess with CT scan with/without contrast of abdomen and pelvis after discharge. If these are negative then will repeat CT scan [address] Assessment 8. Acute renal insufficiency, improving, likely due to lasix Plan: Will continue to monitor. Code status: DNR Disp: If patient stable on metoprolol and carvedilol for > 24 hours, anticipate discharge to home tomorrow with family and home health. Quality VTE Deep Vein Thrombosis/Pulmonary Embolism Present on Admission: No
[2019-08-12 11:25] LABS: Add Manual Diff / Slide Review NO; Basophils Absolute Auto 0 /uL (0-100); Eosinophils Absolute Auto 0 /uL (0-450); Eosinophils Percent Auto 0.1 % (2-4); Hematocrit 42.6 % (36-46); Hemoglobin 14.3 g/dL (12.0-16.0); Lymphocytes Absolute Auto 900 /uL (1100-4500); Lymphocytes Percent Auto 10.4 % (25-40); Mean Corpuscular HGB Conc 33.5 % (30-36); Mean Corpuscular Hemoglobin 35.9 PG (26-34); Mean Corpuscular Volume 107.4 fL (80-100); Monocytes Absolute Auto 700 /uL (0-900); Monocytes Percent Auto 7.7 % (3-14); Neutrophils Absolute Auto 7000 /uL (1500-7000); Neutrophils Percent Auto 81.8 % (50-75); Platelet Count 363 X10^3/uL (150-400); Red Blood Cell Count 3.97 X10^6/uL (4.0-5.2); Red Cell Distribution Width 13.8 % (11.6-14.8); White Blood Cell Count 8.6 X10^3/uL (4.5-11.0)
[2019-08-12 11:55] LABS: B Type Natriuretic Peptide 892 (<100)
--- NOTE | 2019-08-12 12:29 | CM.DPC ---
DCP Cont: Checked in with patient. Son was in room, introduced self and role. Patient was sitting up in her chair, alert and oriented. Wanted to check in with patient and son that home health is their choice versus skilled. Son stated, we just talked about this yesterday, and home with home health is the plan, not skilled. Son stated he will be looking in to increasing [facility] caregiving. At this time, son confirmed that he will be staying with patient. He resides in [place], and has live there since 1994. P: DCP to continue to follow. Plan is for home with [facility], face to face is signed. Will contact them upon discharge. Camryn Davis RN/Paleology Professor
--- NOTE | 2019-08-12 13:01 | PC.NURSE ---
Day Shift/Transfer Patient transferred to room 215 via wheelchair with staff member at this time. All belongings with patient including clothing and glasses. Report given to Horace ORTIZ.
--- NOTE | 2019-08-12 13:59 | PC.NURSE ---
Patient was brought up from ICU to room 215, re oriented to room and call light. Patient sitting up in chair, agrees that she will call for assistance getting up. Denies pain or other complaint. Smiling and talkative. Call light within reach.
--- NOTE | 2019-08-12 14:09 | OT.IP.EVAL ---
Current Diagnoses Pneumonia, unspecified organism (08/09/19) Past Medical History (Last Reviewed 08/09/19 @ 00:47 by Juancarlos Acevedo DO) Facial contusion (Inactive) Fracture of neck of humerus (Inactive) Myelodysplastic syndrome (Inactive) Occupational Therapy Inpatient Evaluation/Re-Eval M1 PT/OT-IP Prior Functional Status Start: 08/09/19 16:00 Freq: NEEDED Status: Active Protocol: Document 08/12/19 14:40 CGR (Rec: 08/12/19 14:58 CGR [email or web address]) Medical Review Prior Functional Status Medical History Reviewed Yes Communication able to make needs known Mobility and Gait pt stated that she is modified independent with all mobilities and ambulation using 4WW Activities of Daily Living and IADL's Pt was IND for all ADLs with a shower seat. Social History Household Members none Living Arrangements House Number of Floors (Floors) One Floor Number of Stairs To Enter/Railing? No steps to enter from the garage which is her main entry . No steps in the home. 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 M2 OT-IP Current Condition Start: 08/12/19 14:40 Freq: Status: Active Protocol: Document 08/12/19 14:40 CGR (Rec: 08/12/19 14:58 CGR [email or web address]) Occupational Therapy Current Condition Current Condition Evaluation Date 08/12/19 Treatment Diagnosis SOB with Afib and RVR Diagnosis Onset Date 08/09/19 M3 OT- IP Subjective and Pain Start: 08/12/19 14:40 Freq: Status: Active Protocol: Document 08/12/19 14:40 CGR (Rec: 08/12/19 14:58 CGR [email or web address]) OT- Subjective Occupational Therapy Visit Type Type Initial Evaluation Visit Start Time 13:51 Visit Stop Time 14:09 Total Visit Minutes 18 OT Pain Assessment Pain When Pain Assessed At Rest Pain Present Pain Present Denied Pain M4 OT- IP ADL's Start: 08/12/19 14:40 Freq: Status: Active Protocol: Document 08/12/19 14:40 CGR (Rec: 08/12/19 14:58 CGR [email or web address]) OT [id number] Comments OT Self-Feeding Comments Not meal time OT ADL-Grooming General Evaluation Grooming Ability Standby Assistance Areas Needing Assistance Face Washing Comments OT Grooming Comments washed face and hands standing at sink OT ADL-Oral Care Comments Oral Care Comments Pt declined, stated she performed this AM. OT ADL-Dressing General Eval Upper Body Dressing Ability Independent Lower Body Dressing Ability Independent Areas Needing Assistance Socks Comments OT Dressing Comments seated in chair OT ADL-Toileting General Evaluation Toileting Ability Standby Assistance Comments OT Toileting Comments Pt sat on toilet for toileting . Noted small BM in brief. Pt changed brief with SBA seated on toielt and performed all pericare without assist. OT ADL-Bathing Comments OT Bathing Comments Not performed in this session. M5 OT- IP IADL's Start: 08/12/19 14:40 Freq: Status: Active Protocol: Document 08/12/19 14:40 CGR (Rec: 08/12/19 14:58 CGR [email or web address]) OT-Instrumental Activities of Daily Living Deficits IADL Deficits Identified Deficits Home Safety Awareness Awareness of Need for Assistance at Home Good Awareness Ability to Problem Solve Emergency Able to Problem Solve Situations Medication Management Medication Management No Deficits Identified Money Management Money Management No Deficits Identified Meal Preparation Meal Preparation No Deficits Identified Account Development Manager Account Development Manager Caregiver Provides Assist Driving Driving Comments Pt states she was an 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 M6 OT- IP Functional Cognition Start: 08/12/19 14:40 Freq: Status: Active Protocol: Document 08/12/19 14:40 CGR (Rec: 08/12/19 14:58 CGR [email or web address]) Cognitive Factors Limiting Selfcare Function Cognitive Ability Level of Alertness Alert Patient Orientation Name,Age,Birthday,Month,Date, Year,Day of Week,Place, Situation Attention Span Ability Capable of Focused Attention, Capable of Sustained Attention Ability to Follow Commands Able to Follow Multi-Step Commands Memory Description No Deficits Noted Safety Awareness No Deficits Noted Problem Solving Ability No deficits Noted OT- Vision and Hearing OT- Hearing Assessment OT- Hearing Assessment WFL OT- Vision Assessment Visual Acuity Glasses All The Time Visual Attentiveness WFL Occular Pursuits WFL Visual Convergence WFL Visual [place] WFL M7 OT- IP Mobility and Balance Start: 08/12/19 14:40 Freq: Status: Active Protocol: Document 08/12/19 14:40 CGR (Rec: 08/12/19 14:58 CGR [email or web address]) OT-Transfer Assessment Sit to and From Stand Sit to and from Stand Contact Guard Assistance Transfers Transfer Ability Contact Guard Assistance Technique Transfer Destination Chair,Toilet Transfer Technique Stand Step Pivot Devices Transfer Assistive Devices Gait Belt,Front Wheeled Walker OT- Gait Assessment Gait Gait Assistance Required: Contact Guard Assist Assistive Devices Assistive Device Gait Belt,Front Wheeled Walker Comments Gait Ability Comments Mobility around the room. OT- Balance Assessment Sitting Balance and Reactions Static Sitting Balance Ability Poor Dynamic Sitting Balance Ability Good M8 OT- IP Objective Assessments Start: 08/12/19 14:40 Freq: Status: Active Protocol: Document 08/12/19 14:40 CGR (Rec: 08/12/19 14:58 CGR [email or web address]) OT Gross Range of Motion Upper Extremity Range of Motion Assessment Within Functional Limits ROM Impairments slight ROM and strength deficit noted to the R arm. Pt states previous injury. OT Strength Upper Extremity Strength Assessment Within Functional Limits OT- Coordination Assessment Upper Extremity Finger to Nose Test Within Functional Limits Finger Tapping Test Within Functional Limits OT-Muscle Tone Assessment Muscle Tone WNL Yes OT Sensation Assessment Edema Edema Absent M9 OT- IP Assessment and Plan Start: 08/12/19 14:40 Freq: Status: Active Protocol: Document 08/12/19 14:40 CGR (Rec: 08/12/19 14:58 CGR [email or web address]) OT Summary Assessment and Plan Potential Rehabilitation Potential Excellent Analytic Complexity at Evaluation Low Summary OT Impairments Functional Mobility,Grooming, Dressing,Toileting,Bathing, Toilet Transfers,Shower Transfers Progress Towards Goals Progressing Toward Goals Assessment Summary Pt presents as a low complexity evaluation. Pt presents with some deficits to endurnace and home safety. Pt will likely be safe for discharge home with sons support. Recommend shower prior to d/c. Goals Bathing Goal Independent Shower Transfer Goal Independent Frequency of Treatment Frequency Of Treatment Once a Day Treatment Plan OT Treatment Plan ADL Training,Functional Mobility,Patient/Family Education,Discharge Planning Other Treatment Recommendations and Next shower Treatment Focus Discharge Recommendations OT Discharge Recommendations Home with Assistance Home Equipment Needs recommend gb in bathroom.
--- NOTE | 2019-08-12 14:19 | PT.IPTN ---
Current Diagnoses Pneumonia, unspecified organism (08/09/19) Physical Therapy Treatment Note M2 PT-IP Current Condition Start: 08/09/19 16:00 Freq: NEEDED Status: Active Protocol: Document 08/09/19 14:36 AB (Rec: 08/09/19 16:17 AB [id number]) Physical Therapy Current Condition Current Condition Evaluation Date 08/09/19 Treatment Diagnosis A-fib; SOB; difficulty in walking Onset Date 08/09/19 Precautions Other Precautions O2 sat, DE M3 PT-IP Subjective Start: 08/09/19 16:00 Freq: NEEDED Status: Active Protocol: Document 08/12/19 13:20 LJ (Rec: 08/12/19 14:19 LJ [id number]) Subjective Physical Therapy Visit Type Type Treatment Note Visit Start Time 13:20 Visit Stop Time 13:48 Total Visit Minutes 28 Notes Pt just arrived from ICU with nursing. Physical Therapy Visit Comments Patient Comments pt agreeable to do PT M4 PT-IP Mobility and Gait Start: 08/09/19 16:00 Freq: NEEDED Status: Active Protocol: Document 08/12/19 13:20 LJ (Rec: 08/12/19 14:19 LJ [id number]) PT-Transfer Assessment Sit to and From Stand Sit to and from Stand Contact Guard Assistance Equipment Transfer Assistive Device Gait Belt,Front Wheeled Walker Orthotic/Prosthetic Devices or Brace: No Transfers Transfer Destination Chair Transfer Technique turned around w/FWW Transfer Ability Level of Assist Standby Assistance,Use of Upper Extremities Comments Mobility Comments Pt on RA during mobility with SO2 at 96%. Pt able to rise from WC with SBA and sit into chair SBA after ambulating in hallway. SO2 post activity 96% . Gait Assessment Gait Gait Assistance Required: Standby Assistance Distance (Feet) 260 Able to Maintain Weight Bearing Status Yes During Gait Assistive Devices Assistive Device Gait Belt,Front Wheeled Walker Orthotic/Prosthetic Devices or Brace: No Gait Deviations General Gait Pattern Decreased Feet Clearance Factors Limiting Gait Function Factors Limiting Gait Function Decreased Activity Tolerance, Decreased Strength,Poor Balance,Poor Safety Awareness, Respiratory Distress Comments Gait Comments Pt ambuated 260' in hallway without LOB or fatigue. Her gait was near normal with diminished foot clearance. Pt was talking during ambulation and had no SOB. No need for rest break. M5 PT-IP Objective Assessments Start: 08/09/19 16:00 Freq: NEEDED Status: Active Protocol: Document 08/09/19 14:36 AB (Rec: 08/09/19 16:17 AB [id number]) Orientation Orientation/Cognition Level of Alertness Alert Orientation Name,Place,Situation Language Function Ability No Deficits Noted Safety Awareness Understands Safety Issues Memory Description No Deficits Noted Gross Range of Motion Lower Extremity ROM Assessment Within Functional Limits Strength Lower Extremity Strength Assessment Within Functional Limits Hip 4/5 Knee 4/5 Coordination Assessment Gross Coordination Gross Coordination WNL Sensation Assessment Sensation Gross Sensation WNL Muscle Tone Muscle Tone WNL Yes M6 PT-IP Treatment Start: 08/09/19 16:00 Freq: NEEDED Status: Active Protocol: Document 08/11/19 09:53 AB (Rec: 08/11/19 10:51 AB [id number]) Physical Therapy Treatment Education Education Provided Safety M7 PT-IP Assessment and Plan Start: 08/09/19 16:00 Freq: NEEDED Status: Active Protocol: Document 08/12/19 13:20 LJ (Rec: 08/12/19 14:19 LJ [id number]) PT Summary Assessment and Plan Potential Rehabilitation Potential Fair Summary Impairments Strength,Balance,Bed Mobility, Transfers,Gait,Activity Tolerance Progress Towards Goals Slow Progress due to Medical Issues,Slow Progress due to Activity Tolerance Assessment Summary Pt is progressing with activity tolerance and gait distance. RA tolerance with SO2 in high 90's. No c/o SOB or need for rest break during 260' ambulation. Goals Bed Mobility Goal Independent Transfer Goal Independent,Front Wheeled Walker,Four Wheeled Walker Gait Goal Independent,Front Wheel Walker ,Four Wheel Walker Gait Distance 200 Days to Meet Goals 10 Frequency of Treatment Frequency Of Treatment Once a Day Treatment Plan Physical Therapy Treatment Plan Bed Mobility Training,Transfer Training,Gait Training, Therapeutic Exercise,Balance Retraining,Discharge Planning, Neuromuscular Re-ed, Coordination Retraining Recommendations To Nursing Amount of Assist Needed 1 Person Assist Discharge Recommendations PT Discharge Recommendations Home with Assistance,Home with / Assist,Outpatient PT
[2019-08-12] MEDS: LORATADINE 10 MG TABLET PO (20:17)
[2019-08-12] MEDS: MIRTAZAPINE 15 MG TABLET 30 MG PO (20:17)
[2019-08-12] MEDS: SODIUM CHLORIDE 0.9% FLUSH 10 ML IV (20:17)
[2019-08-13 00:05] VITALS: O2SAT 95
[2019-08-13 05:18] VITALS: BP 127/65; PULSE 101; RESP 16; TEMP 36.6; O2SAT 94
[2019-08-13 06:18] LABS: Add Manual Diff / Slide Review NO; Basophils Absolute Auto 0 /uL (0-100); Basophils Percent Auto 0.4 % (0-2); Eosinophils Absolute Auto 0 /uL (0-450); Eosinophils Percent Auto 0.2 % (2-4); Hemoglobin 13.2 g/dL (12.0-16.0); Lymphocytes Absolute Auto 1100 /uL (1100-4500); Lymphocytes Percent Auto 15.7 % (25-40); Mean Corpuscular HGB Conc 33.1 % (30-36); Mean Corpuscular Hemoglobin 35.2 PG (26-34); Mean Corpuscular Volume 106.3 fL (80-100); Monocytes Absolute Auto 600 /uL (0-900); Monocytes Percent Auto 9.1 % (3-14); Neutrophils Absolute Auto 5000 /uL (1500-7000); Neutrophils Percent Auto 74.6 % (50-75); Platelet Count 308 X10^3/uL (150-400); Red Blood Cell Count 3.76 X10^6/uL (4.0-5.2); Red Cell Distribution Width 13.3 % (11.6-14.8); White Blood Cell Count 6.7 X10^3/uL (4.5-11.0)
[2019-08-13 06:26] LABS: BUN Creatinine Ratio 33.6 (6-22); Blood Urea Nitrogen 47 mg/dL (7-17); Calcium 8.8 mg/dL (8.4-10.2); Carbon Dioxide 26 mmol/L (22-32); Chloride 109 mmol/L (98-107); Estimated Glomerular Filt Rate 35.9 mL/min (>60); Glucose 91 mg/dL (80-110); HEMOLYSIS < 15 (0-50); Potassium 4.8 mmol/L (3.4-5.1); Sodium 141 mmol/L (137-145)
--- NOTE | 2019-08-13 06:56 | PM.DS.1 ---
History of Present Illness History of Present Illness Date Patient Seen: 08/13/19 Time Patient Seen: 06:56 Chief complaint: Difficulty breathing Narrative: Patient is well known to me. Patient presented to emergency department with worsening shortness of breath and was found to have atrial fibrillation with rapid ventricular rate. She is placed on a diltiazem drip and was admitted to the hospital for further evaluation and treatment. CTA did not show evidence of pulmonary embolus but radiologist called me this morning to tell me that there was hilar lymphadenopathy which was new from prior CT scans. It was also felt that patient had some pulmonary edema related to the AFib with rapid ventricular rate. She has no history of either of these. She attributes her symptoms to when she received the flu vaccine approximately 6 days ago. She had a low-grade fever and then developed a cough and congestion. She denies any chest pain. She denies any syncope or presyncope but had coughing [place] prior to activating her lifeline and urgency alert and was struggling to breathe. On admission she was placed on 4 L of nasal cannula oxygen and this is been decreased to 2 L. She received 40 mg of IV Lasix in the emergency department. At this time she is feeling much better. Discharge Providers Provider Date of admission: 08/09/19 00:20 Discharge Date: 08/13/19 Primary care physician: Cira Cervantes MD Consults: 08/09/19 00:23 Consult to Physician Routine Comment: Consulting Provider: Cira Cervantes Reason for consultation: admission Has provider been notified: No Consult to Physician Stat Comment: Consulting Provider: Connie Mcmahon Reason for consultation: admission Has provider been notified: Yes 08/09/19 09:58 Consult to Physical Therapy Evaluate & Treat Comment: Physician Instructions: Evaluate and Treat 08/12/19 10:07 Consult to Occupational Therapy Evaluate & Treat Comment: Physician Instructions: Evaluate and treat Discharge provider: Connie Mcmahon MD Summary Hospital Course Discharge Diagnosis: Assessment 1. New onset atrial fibrillation with rapid ventricular rate now in sinus rhythm. Assessment 2. Pneumonia, suspected community-acquired with negative MRSA and negative flu swab Assessment 3. COPD with tobacco dependence Assessment 4. Depression Assessment 5. Pulmonary edema with no clinical signs of heart failure. Assessment 6. Hilar lymphadenopathy on CT scan. new Assessment 7. Acute renal insufficiency, improving Hospital Course: Upon admission, patient was paced on diltiazem immediate release 30 mg p.o. q.6 hours and converted into sinus rhythm after 12 hours. She remained in sinus rhythm for 24 hours and was switched to diltiazem extended release 120 mg PO qd on HD#2. However, her heart rate was uncontrolled in the 120s and she was given an additional evening dose of diltiazem extended release 120 mg PO qd. On HD#3, her heart rate was still in the 120s and metoprolol 25 mg PO qd was added with good effect. For the last 48 hours, patient has been in sinus rhythm with a mostly normal normal rate, there have been a few outliers just a point or two over 100. Echocardiogram on 08/10/2019 showed an ejection fraction of 50-55%, severely dilated left atrium, moderate to severe mitral regurgitation, which is increased from the prior study, moderate aortic regurgitation, moderate to severe tricuspid regurgitation and pulmonary hypertension. Patient declined anticoagulation as she has a friend who on anticoagulation. For patient's community-acquired pneumonia, she was treated with ceftriaxone and azithromycin. Two days prior to discharge, she was transitioned to oral medications. She will be discharged on Ceftin 500 mg p.o. b.i.d. for an additional 5 day course. COPD was treated with a short course of prednisone as well as her albuterol. Hilar lymphadenopathy, new, was noted on CT scan. Plan is to reassess with CT scan with/without contrast of abdomen and pelvis after discharge. If these are negative then CT scan should be repeated in 3 months to check for stability. She did have acute renal failure during her admission likely secondary to Lasix. Follow up 1 week with PCP, Dr. Cervantes, at that visit: 1. Check kidney function with BMP. 2. Check blood pressure and ensure rate control with diltiazem and metoprolol. 3. Order abdomen/pelvis CT scan with/without contrast to follow hilar lymphadenopathy after pneumnia has resolved. Status at Discharge Cognitive/behavioral status at discharge: at baseline, oriented Functional status at discharge: independent ambulation Overall status at discharge: patient is progressing back to baseline Time Spent with Patient Time spent: Greater than 30 minutes Time spent discussing smoking cessation with patient: more than 10 minutes Exam Vital Signs (past 8 hours): - 08/12/19 23:50 08/13/19 00:05 08/13/19 05:18 Temperature 97.1 F L 97.8 F Pulse Rate 93 H 101 H Respiratory Rate 16 16 Blood Pressure 130/81 127/65 Pulse Oximetry 94 95 94 Oxygen Delivery Method Room Air Oxygen Flow Rate 0 Narrative Exam Narrative: GENERAL: Alert and oriented, appearing stated age and in no acute distress. HEENT: Head normocephalic/atraumatic. LUNGS: Adventitious sounds heard throughout with bilateral wheezes. CV: Normal S1 and S2 with regular rate and rhythm, 3/5 systolic murmur, no rubs or gallops. ABDOMEN: Soft, non-tender, non-distended, no organomegaly. Positive bowel sounds. EXTREMITIES: No clubbing, cyanosis, or edema. NEURO: Cranial nerves II through XII grossly intact, no focal deficits. PSYCH: Alert and oriented x 3. SKIN: No concerning lesions. Objective Labs Result Diagrams: 08/13/19 06:00 08/13/19 06:00 Labs: Laboratory Results - last 24 hr 08/12/19 08/13/19 08/13/19 11: 06:00 06:00 WBC 8.6 6.7 RBC 3.97 L 3.76 L Hgb 14.3 13.2 Hct 42.6 40.0 MCV 107.4 H 106.3 H MCH 35.9 H 35.2 H MCHC 33.5 33.1 RDW 13.8 13.3 Plt Count 363 308 Neut % (Auto) 81.8 H 74.6 Lymph % (Auto) 10.4 L 15.7 L [place] % (Auto) 7.7 9.1 Eos % (Auto) 0.1 L 0.2 L Baso % (Auto) 0.0 0.4 Neut # (Auto) 7000 5000 Lymph # (Auto) 900 L 1100 [place] # (Auto) 700 600 Eos # (Auto) 0 0 Baso # (Auto) 0 0 Sodium 141 Potassium 4.8 Chloride 109 H Carbon Dioxide 26 BUN 47 H Creatinine 1.40 H Estimated GFR 35.9 L BUN/Creatinine Ratio 33.6 H Glucose 91 Calcium 8.8 B-Natriuretic Peptide 892 H Discharge Plan Discharge Plan Patient Disposition: Home Health Service Transfer to: [facility] Discharge Med Rec/Prescriptions Prescriptions: New cefuroxime axetil 250 mg Tablet 500 mg PO BID 5 Days Qty: 20 RF: 0 diltiazem HCl 120 mg Capsule,Extended Release 24hr 120 mg PO DAILY 30 Days RF: 3 metoprolol succinate 25 mg Tablet Extended Release 24 Hr 25 mg PO DAILY 30 Days Qty: 30 RF: 3 Continued cetirizine 10 MG tablet 10 mg PO PRN Qty: 0 RF: 0 atorvastatin [Lipitor] 10 MG tablet 5 mg PO HS Qty: 0 RF: 0 citalopram [Celexa] 10 MG tablet 20 mg PO QDAY Qty: 0 RF: 0 aspirin 325 MG tablet,delayed release (DR/EC) 325 mg PO DAILY Qty: 0 RF: 0 folic acid 1 mg Tablet 1 mg PO DAILY Qty: 0 RF: 0 pyridoxine (vitamin B6) 100 mg Tablet 100 mg PO DAILY Qty: 0 RF: 0 ferrous sulfate 324 mg (65 mg iron) Tablet,Delayed Release (Dr/Ec) 324 mg PO DAILY Qty: 0 RF: 0 Daily Multivitamin 200-100-500 mcg Capsule 1 cap PO DAILY Qty: 0 RF: 0 calcium carbonate [Calcium 500] 500 mg calcium (1,250 mg) Tablet 1,000 mg PO DAILY Qty: 0 RF: 0 calcitonin (salmon) 200 IU/PUFF spray,non-aerosol 1 puff NS QDAY Qty: 0 RF: 0 mirtazapine [Remeron] 30 mg Tablet 30 mg PO BEDTIME RF: 0 nystatin 100,000 unit/gram Cream 1 applic TOPICAL TID PRN (Reason: yeast) RF: 0 cholecalciferol (vitamin D3) [Vitamin D3] 1,000 unit Tablet 1,000 unit PO DAILY RF: 0 Discontinued amlodipine [Norvasc] 5 MG tablet 5 mg PO QDAY Qty: 0 RF: 0 Follow up/Referrals: Cira Cervantes MD [Primary Care Provider] - Provider Discharge Instructions Diet: Diet as Tolerated Visit Report/Discharge Packet Instructions: DI for Atrial Fibrillation, Cefuroxime, Metoprolol, Diltiazem Discharge Data Primary Care Provider: Cira Cervantes Quality VTE Deep Vein Thrombosis/Pulmonary Embolism Present on Admission: No
[2019-08-13 07:00] VITALS: O2SAT 94
[2019-08-13 08:14] VITALS: BP 136/69; PULSE 88; RESP 14; TEMP 36.2; O2SAT 94
[2019-08-13] MEDS: METOPROLOL ER 25 MG TABLET PO (08:30)
[2019-08-13] MEDS: ASPIRIN 325 MG TABLET PO (08:30)
[2019-08-13] MEDS: CITALOPRAM 20 MG TABLET PO (08:30)
[2019-08-13] MEDS: AZITHROMYCIN 250 MG TABLET PO (08:30)
[2019-08-13] MEDS: predniSONE 20 MG TABLET 40 MG PO (08:30)
[2019-08-13] MEDS: cefUROXime 250 MG TABLET 500 MG PO (08:30)
[2019-08-13] MEDS: dilTIAZem CD 120 MG CAP PO (08:30)
[2019-08-13] MEDS: ENOXAPARIN 30 MG/0.3 ML SYRINGE SUBCUT (08:32)
--- NOTE | 2019-08-13 08:43 | CM.DPC ---
Addendum entered by Camryn Davis R.N. 08/13/19 09:28: Patient signed IMM, she was updated that [facility] has been ordered. Original Note: DCP Cont: Patient has discharge orders for home today. She will be getting [facility]. Went ahead and faxed discharge summary, orders, and face to face with face sheet to [facility]. Called Svitlana at [facility] and gave her update. Will need to have patient sign IMM. Son will be staying with her. P: Patient is to be discharged home with [facility] for nursing, P.T, O.T, and bath aide. Camryn Davis RN/[employer]
[2019-08-13 09:10] VITALS: O2SAT 94
--- NOTE | 2019-08-13 09:47 | PT.IPTN ---
Current Diagnoses Pneumonia, unspecified organism (08/09/19) Physical Therapy Treatment Note M2 PT-IP Current Condition Start: 08/09/19 16:00 Freq: NEEDED Status: Active Protocol: Document 08/09/19 14:36 AB (Rec: 08/09/19 16:17 AB [id number]) Physical Therapy Current Condition Current Condition Evaluation Date 08/09/19 Treatment Diagnosis A-fib; SOB; difficulty in walking Onset Date 08/09/19 Precautions Other Precautions O2 sat, OR M3 PT-IP Subjective Start: 08/09/19 16:00 Freq: NEEDED Status: Active Protocol: Document 08/13/19 09:35 CLB (Rec: 08/13/19 09:54 CLB [id number]) Subjective Physical Therapy Visit Type Type Treatment Note Visit Start Time 09:35 Visit Stop Time 09:47 Total Visit Minutes 12 Number of AUTO MECHANIC Visits 2 Physical Therapy Visit Comments Patient Comments pt agreeable to do PT M4 PT-IP Mobility and Gait Start: 08/09/19 16:00 Freq: NEEDED Status: Active Protocol: Document 08/13/19 09:35 CLB (Rec: 08/13/19 09:54 CLB [id number]) PT-Transfer Assessment Sit to and From Stand Sit to and from Stand Standby Assistance Equipment Transfer Assistive Device Gait Belt,Front Wheeled Walker Orthotic/Prosthetic Devices or Brace: No Transfers Transfer Destination Chair,Toilet Transfer Ability Level of Assist Standby Assistance,Use of Upper Extremities Comments Mobility Comments Pt O2 on RA WNL. Pt ambulated to BR using toilet and performing own pericare SBA. Pt stood at sink w/o walker and had steady dynamic standing to wash and dry hands w/o LOB. Left pt in chair with MINE GEOLOGIST present in room. Gait Assessment Gait Gait Assistance Required: Standby Assistance Distance (Feet) 260 Able to Maintain Weight Bearing Status Yes During Gait Assistive Devices Assistive Device Gait Belt,Front Wheeled Walker Orthotic/Prosthetic Devices or Brace: No Gait Deviations General Gait Pattern Decreased Feet Clearance, Flexed Trunk Comments Gait Comments Pt ambulated ~260ft w/o LOB or SOB. Pt is steady with gait and has good safety awareness. M5 PT-IP Objective Assessments Start: 08/09/19 16:00 Freq: NEEDED Status: Active Protocol: Document 08/09/19 14:36 AB (Rec: 08/09/19 16:17 AB [id number]) Orientation Orientation/Cognition Level of Alertness Alert Orientation Name,Place,Situation Language Function Ability No Deficits Noted Safety Awareness Understands Safety Issues Memory Description No Deficits Noted Gross Range of Motion Lower Extremity ROM Assessment Within Functional Limits Strength Lower Extremity Strength Assessment Within Functional Limits Hip 4/5 Knee 4/5 Coordination Assessment Gross Coordination Gross Coordination WNL Sensation Assessment Sensation Gross Sensation WNL Muscle Tone Muscle Tone WNL Yes M6 PT-IP Treatment Start: 08/09/19 16:00 Freq: NEEDED Status: Active Protocol: Document 08/11/19 09:53 AB (Rec: 08/11/19 10:51 AB [id number]) Physical Therapy Treatment Education Education Provided Safety M7 PT-IP Assessment and Plan Start: 08/09/19 16:00 Freq: NEEDED Status: Active Protocol: Document 08/13/19 09:35 CLB (Rec: 08/13/19 09:54 CLB [id number]) PT Summary Assessment and Plan Summary Impairments Strength,Balance,Bed Mobility, Transfers,Gait,Activity Tolerance Assessment Summary Pt is SBA for all mobility , pt is steady with gait with good safety awareness. Pt seems safe to d/c home with son to assist when medically stable. Goals Bed Mobility Goal Independent Transfer Goal Independent,Front Wheeled Walker,Four Wheeled Walker Gait Goal Independent,Front Wheel Walker ,Four Wheel Walker Gait Distance 200 Days to Meet Goals 10 Frequency of Treatment Frequency Of Treatment Once a Day Treatment Plan Physical Therapy Treatment Plan Bed Mobility Training,Transfer Training,Gait Training, Therapeutic Exercise,Balance Retraining,Discharge Planning, Neuromuscular Re-ed, Coordination Retraining Recommendations To Nursing Amount of Assist Needed 1 Person Assist Discharge Recommendations PT Discharge Recommendations Home with Assistance,Home with 24/ Assist,Outpatient PT
--- NOTE | 2019-08-13 10:22 | PC.NURSE ---
DISCHARGE: PATIENT'S SON MICHELA CAME TO PICK HER UP. HE WAS PRESENT FOR ALL DC HOME INSTRUCTIONS, REVIEWED ALL HANDOUTS, SE OF MEDICATIONS, RATIONALE OF MEDICATIONS, PATHOLOGY OF AFIB AND RISK FACTORS FOR STROKE. PATIENT AND SON CONFIRM UNDERSTANDING. SCRIPTS PROVIDED. THEY WILL CALL WEDNESDAY TO SCHEDULE F/U APPT. [facility] IS SET UP AND THEY WILL SEE PATIENT TOMORROW AT HOME. PATIENT LEFT BY WITH ALL BELONGINGS AND PAPERWORK IN NO S/SX'S OF DISTRESS WITH BIOLOGIST AIDE ESCORT TO VEHICLE.
== END 2019-08-13 10:25 | disposition home health service (06) | DRG 308 ==
LOC: ED 21:54 → AC 08-09 00:22 → ICU 08-09 07:53 → AC 08-12 13:20
PROVIDERS: Family Medicine; Student in an Organized Health Care Education/Training Program; Admitting Provider Family Medicine; Emergency Provider Emergency Medicine; Family Provider Family Medicine; PCP Family Medicine; Visit Provider Family Medicine
DX: I48.91 Unspecified atrial fibrillation (principal); J18.9 Pneumonia, unspecified organism; J81.0 Acute pulmonary edema; J44.9 Chronic obstructive pulmonary disease, unspecified; D46.9 Myelodysplastic syndrome, unspecified; N18.3 Chronic kidney disease, stage 3 (moderate); I73.9 Peripheral vascular disease, unspecified; F17.210 Nicotine dependence, cigarettes, uncomplicated; F32.9 Major depressive disorder, single episode, unspecified; I12.9 Hypertensive chronic kidney disease with stage 1 through stage 4 chronic kidney disease, or unspecified chronic kidney disease; R59.0 Localized enlarged lymph nodes
CPT/HCPCS: 36415; 71045; 71275; 80048; 80053; 81001; 83690; 83735; 83880; 84145; 84484; 85025; 85610; 85730; 87502; 87797; 93005; 93010; 93306; 94640; 94760; 94762; 96365; 96366; 96375; 97116; 97162; 97165; 99285; J1650; J1940; J2930; Q9967

== ENCOUNTER 2019-09-19 13:40 | Emergency (ER) | payer OTHER, SELFPAY ==
[2019-08-09 01:20] VITALS: BMI 26.2
[2019-09-19] VITALS (7 sets, daily range): BP systolic 106–134; BP diastolic 62–96; PULSE 112–138; RESP 18–24; TEMP 36.5; O2SAT 94–99
--- NOTE | 2019-09-19 | DI.CT.S_ITS ---
PROCEDURE: CT HEAD/BRAIN WO CON INDICATIONS: CODE STROKE TECHNIQUE: Noncontrast 4.5 mm thick angled axial sections acquired from the foramen magnum to the vertex, with coronal and sagittal reformats. For radiation dose reduction, the following was used: automated exposure control, adjustment of mA and/or kV according to patient size. COMPARISON: [facility], CT, HEAD WITHOUT CONTRAST, 08/14/2007, 20:39. [facility], CT, HEAD WITHOUT CONTRAST, 03/10/2016, 21:51. FINDINGS: Image quality: Excellent. CSF spaces: Basal cisterns are patent. No extra-axial fluid collections. The ventricles are symmetric in size and shape. Brain: There is a hypodensity in the right parietal/posterior temporal lobe consistent with subacute infarct. This finding is new since 03/10/2016. No intracranial bleeds or masses. There is moderate cerebral volume loss for age, with resultant ventricular and sulcal prominence. There are moderate periventricular and deep white matter chronic small vessel ischemic changes. There is intracranial internal carotid artery atherosclerosis. Skull and face: Calvarium and visualized facial bones appear intact, without suspicious lesions. Sinuses: There is left maxillary and sphenoid sinus mucosal thickening. The mastoids are clear. IMPRESSION: 1. 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 2. Moderate cerebral volume loss and chronic microvascular ischemic changes. 3. Left maxillary and sphenoid sinusitis. The result was discussed with Dr. Dill on 09/19/2019 at 1352 hours. Dictated by: Janett Sloan M.D. on 09/19/2019 at 13:49 Approved by: Janett Sloan M.D. on 09/19/2019 at 13:57
--- NOTE | 2019-09-19 13:56 | ED.NEUROSD ---
HPI - Neuro Symptoms/Deficit General Chief Complaint: Neuro Symptoms/Deficit Stated Complaint: Code Stroke Time Seen by Provider: 09/19/19 13:45 History of Present Illness HPI Narrative: 83-year-old woman who had doctor's appointment this afternoon, her friends when over to pick her up and found her slumped off of her chair onto the floor with complete left-sided hemiparesis and left-sided neglect. She apparently spoke to her son at 11:26 a.m. this morning and he reports that she was alert and appropriate. On initial arrival if she is completely aphasic, dysarthric with complete left hemiparesis and dense left-sided neglect. She apparently does live by herself and she does have a POLST form that indicates no code. Review of records indicate that she was discharged from [facility] on 08/12/19 with new atrial fibrillation with rapid ventricular response in spontaneous conversion to normal sinus rhythm, community-acquired pneumonia. New discharge medications include diltiazem and metoprolol, she continues on a full daily aspirin regimen. Echocardiogram showed a severely dilated left atrium, moderate to severe mitral regurg, moderate aortic regurgitation, severe tricuspid regurgitation and pulmonary hypertension. Apparently a discussion ensued regarding anticoagulation and the patient declined as she had a friend who on anticoagulation. Last Observed Normal: 11:26 Timing confirmed by: family member Related Data Home Medications Medication Instructions Recorded Confirmed aspirin 325 mg PO DAILY #0 03/09/13 09/19/19 atorvastatin [Lipitor] 10 mg PO BEDTIME #0 03/09/13 09/19/19 calcium carbonate [Calcium 500] 1,000 mg PO DAILY #0 03/09/13 09/19/19 cetirizine 10 mg PO DAILY PRN #0 03/09/13 09/19/19 ferrous sulfate 324 mg PO DAILY #0 03/09/13 09/19/19 folic acid 1 mg PO DAILY #0 03/09/13 09/19/19 pyridoxine (vitamin B6) 100 mg PO DAILY #0 03/09/13 09/19/19 calcitonin (salmon) 1 puff NS DAILY #0 03/02/17 09/19/19 cholecalciferol (vitamin D3) 1,000 unit PO DAILY 03/01/18 09/19/19 [Vitamin D3] mirtazapine [Remeron] 30 mg PO BEDTIME 03/01/18 09/19/19 nystatin 1 applic TOPICAL QID 03/01/18 09/19/19 amlodipine 5 mg PO DAILY 09/19/19 09/19/19 diltiazem HCl 120 mg PO BID 09/19/19 09/19/19 multivitamin 1 cap PO DAILY 09/19/19 09/19/19 Allergies Allergy/AdvReac Type Severity Reaction Status Date / Time Penicillins Allergy Severe I SWELL Verified 08/08/19 21:48 UP, HEAVY BREATHING Review of Systems Review of Systems ROS Unobtainable: Unobtainable due to medical condition Patient History Medical History Facial contusion (Inactive) Fracture of neck of humerus (Inactive) Myelodysplastic syndrome (Inactive) Social History (Updated 09/19/19 @ 15:10 by Missy Dill MD) household members: none Smoking Status: Current some day smoker additional social history: John Arora, son and POA, Currently in [place] and will flying out, arriving around noon to [place] on 09.20.19. Smoking Status: Current some day smoker alcohol intake frequency: a few times a month Substance Use Type: does not use Exam Narrative Exam Narrative: General: Pale, significant distress HEENT: Mucous membranes are moist, significant eye were gaze to the right Neck: Supple no bruits Chest: No trauma Respiratory: She is protecting her airway, no wheezing, no rales no rhonchi Cardiac: 4-6 systolic ejection murmur, irregularly irregular, rapid Abdomen: Soft nontender Skin: Pale, abrasion to the right knee Neurologic: NIH stroke score of 28, dense left-sided hemiplegia with significant left-sided neglect, aphasic Extremities: Mild trauma to the right knee appears that she did fall and abraded this no bony injury Psych: Unable to evaluate due to stroke severity NIH Stroke Scale/Score (NIHSS) from [email or web address] on 09/19/2019 RESULT SUMMARY: 28 points NIH Stroke Scale INPUTS: 1A: Level of consciousness ?> 2 = Movements to pain 1B: Ask month and age ?> 2 = Aphasic 1C: 'Blink eyes' & 'squeeze hands' ?> 1 = Performs 1 task 2: Horizontal extraocular movements ?> 2 = Forced gaze palsy: cannot be overcome 3: Visual pa ?> 0 = No visual loss 4: Facial palsy ?> 3 = Unilateral complete paralysis (upper/lower face) 5A: Left arm motor drift ?> 4 = No movement 5B: Right arm motor drift ?> 0 = No drift for 10 seconds 6A: Left leg motor drift ?> 4 = No movement 6B: Right leg motor drift ?> 0 = No drift for 5 seconds 7: Limb Ataxia ?> 2 = Ataxia in 2 Limbs 8: Sensation ?> 2 = Complete loss: cannot sense being touched at all 9: Language/aphasia ?> 2 = Severe aphasia: fragmentary expression, inference needed, cannot identify materials 10: Dysarthria ?> 2 = Severe dysarthria: unintelligible slurring or out of proportion to dysphasia 11: Extinction/inattention ?> 2 = Profound rody-inattention (ex: does not recognize own hand) Initial Vital Signs Initial Vital Signs: Vital Signs Temperature 97.7 F 09/19/19 13:39 Pulse Rate 128 H 09/19/19 13:39 Respiratory Rate 24 09/19/19 13:39 Blood Pressure 122/65 09/19/19 13:39 Pulse Oximetry 94 09/19/19 13:39 Course Course Course Narrative: Presents with significant stroke. According to her son she was speaking inappropriate at 11:26 a.m. today so presents at approximately 2:00 a.m. post event. She does have a POLST form that indicates no code. Radiologist indicates subacute changes noted on her immediate CT with no obvious bleed, NIH score of 28 and age 83 if suggests that tPA may be inappropriate. Will speak with [facility] stroke neurology and will obtain a CTA to see if interventional options may be appropriate. Orders Ordered: ED Orders 09/19/19 13:47 EKG-12 Lead Stat 09/19/19 13:51 Complete Blood Count AUTO DIFF Stat Comprehensive Metabolic Panel Stat Partial Thromboplastin Time Stat Prothrombin Time INR Stat 09/19/19 14:03 CT angio head and neck Stat 09/19/19 14:35 Urinalysis and Microscopic Stat Urine Culture Stat Urine Drug Screen, Rapid Stat Sodium Chloride (Normal Saline 0.9%) 1,000 mls @ 150 mls/hr IV CONT JOSEPH Last Admin: 09/19/19 15:12 Dose: 150 mls/hr Documented by: ADRIEL Reevaluation(s) Reevaluation #1: Dr Rsetrepo, [facility] neuro. Care is reviewed. Agrees with NO TPA due to findings seen on initial CT. Agrees with consideration of IR is LVO found. Will discuss when CTA results are available (pt currently in scanner) Time: 14:33 Reevaluation #2: Dr Quesada -radiology. 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 She also has a small mid cerebral possible occlusion in an M3 branch. Will review CTA with Dr. Restrepo, . Time: 14:40 Reevaluation #3: Dr Restrepo. Reviewing CTA with IR neurology Time: 14:48 Additional Reevaluation(s): Air lift is here. Report is given 15:36 Vital Signs Vital signs: Vital Signs - 8 hr 09/19/19 13:39 09/19/19 13:55 09/19/19 14:00 Temperature 97.7 F Pulse Rate 128 H 138 H Respiratory Rate 24 23 Blood Pressure 122/65 Blood Pressure [Left Arm] 122/65 114/76 Pulse Oximetry 94 99 09/19/19 14:25 09/19/19 14:40 09/19/19 15:02 Temperature Pulse Rate 127 H 112 H 132 H Respiratory Rate 21 21 18 Blood Pressure Blood Pressure [Left Arm] 106/62 116/81 114/73 Pulse Oximetry 99 99 99 09/19/19 15:18 Temperature Pulse Rate 133 H Respiratory Rate 21 Blood Pressure Blood Pressure [Left Arm] 134/96 H Pulse Oximetry 98 MDM - Neuro Symptoms/Deficit Medical Records Attestation: I reviewed the patient's medical records. Lab Data Attestation: I reviewed the patient's lab results. Lab results narrative: INR is 1.1 Result diagrams: 09/19/19 13:51 09/19/19 13:51 Labs: Lab Results 09/19/19 09/19/19 09/19/19 Range/Units 13:51 13:51 13:51 WBC 11.3 H (4.5-11.0) X10^3/uL RBC 3.85 L (4.0-5.2) X10^6/uL Hgb 12.8 (12.0-16.0) g/dL Hct 38.8 (36-46) % MCV 100.6 H (80-100) fL MCH 33.3 (26-34) PG MCHC 33.1 (30-36) % RDW 14.2 (11.6-14.8) % Plt Count 348 (150-400) X10^3/uL Neut % (Auto) 78.4 H (50-75) % Lymph % (Auto) 13.9 L (25-40) % [place] % (Auto) 5.2 (3-14) % Eos % (Auto) 2.0 (2-4) % Baso % (Auto) 0.5 (0-2) % Neut # (Auto) 8900 H (7992-4521) /uL Lymph # (Auto) 1600 (3018-1719) /uL [place] # (Auto) 600 (0-900) /uL Eos # (Auto) 200 (0-450) /uL Baso # (Auto) 100 (0-100) /uL PT 12.3 (10.1-12.7) SECONDS INR 1.1 (0.9-1.3) APTT 34 D (26.4-36.2) SECONDS Sodium 137 (137-145) mmol/L Potassium 4.1 (3.4-5.1) mmol/L Chloride 102 (98-107) mmol/L Carbon Dioxide 20 L (22-32) mmol/L BUN 36 H (7-17) mg/dL Creatinine 1.50 H (0.52-1.04) mg/dL Estimated GFR 33.2 L (>60) mL/min BUN/Creatinine Ratio 24.0 H (6-22) Glucose 170 H (80-110) mg/dL Calcium 10.1 (8.4-10.2) mg/dL Total Bilirubin 0.5 (0.2-1.3) mg/dL AST 26 (14-36) IU/L ALT 14 (<35) IU/L Alkaline Phosphatase 60 (38-126) U/L Total Protein 7.3 (6.3-8.2) g/dL Albumin 4.3 (3.5-5.0) g/dL Globulin 3.0 (1.7-4.1) g/dL Albumin/Globulin Ratio 1.4 (1.0-2.8) Urine Color Urine Appearance Urine pH (4.5-8.0) Ur Specific [place] (1.000-1.035) Urine Protein (Negative) Urine Glucose (UA) (Negative) g/dL Urine Ketones (NEGATIVE) Urine Occult Blood (Negative) Urine Nitrate (Negative) Urine Bilirubin (NEGATIVE) Urine Urobilinogen (0.2) E.U./dL Ur Leukocyte Esterase (NEGATIVE) Urine RBC (0-5/HPF) Urine WBC (0-5/HPF) Ur Squamous Epith Cells (0-5/HPF) Urine Bacteria (None) Ur Culture Indicated? U Morph 300 ng/mL cutoff (Negative) Ur Oxycodone Screen (Negative) Urine Methadone Screen (Negative) Ur Barbiturates Screen (Negative) U Tricyclic Antidepress (Negative) Ur Phencyclidine Scrn (Negative) Ur Amphetamines Screen (Negative) U Methamphetamines Scrn (Negative) Ur MDMA Scrn (Ecstasy) (Negative) U Benzodiazepines Scrn (Negative) Urine Cocaine Screen (Negative) U Marijuana (THC) Screen (Negative) 09/19/19 09/19/19 Range/Units 14:35 14:35 WBC (4.5-11.0) X10^3/uL RBC (4.0-5.2) X10^6/uL Hgb (12.0-16.0) g/dL Hct (36-46) % MCV (80-100) fL MCH (26-34) PG MCHC (30-36) % RDW (11.6-14.8) % Plt Count (150-400) X10^3/uL Neut % (Auto) (50-75) % Lymph % (Auto) (25-40) % [place] % (Auto) (3-14) % Eos % (Auto) (2-4) % Baso % (Auto) (0-2) % Neut # (Auto) (6022-5845) /uL Lymph # (Auto) (6203-9201) /uL [place] # (Auto) (0-900) /uL Eos # (Auto) (0-450) /uL Baso # (Auto) (0-100) /uL PT (10.1-12.7) SECONDS INR (0.9-1.3) APTT (26.4-36.2) SECONDS Sodium (137-145) mmol/L Potassium (3.4-5.1) mmol/L Chloride (98-107) mmol/L Carbon Dioxide (22-32) mmol/L BUN (7-17) mg/dL Creatinine (0.52-1.04) mg/dL Estimated GFR (>60) mL/min BUN/Creatinine Ratio (6-22) Glucose (80-110) mg/dL Calcium (8.4-10.2) mg/dL Total Bilirubin (0.2-1.3) mg/dL AST (14-36) IU/L ALT (<35) IU/L Alkaline Phosphatase (38-126) U/L Total Protein (6.3-8.2) g/dL Albumin (3.5-5.0) g/dL Globulin (1.7-4.1) g/dL Albumin/Globulin Ratio (1.0-2.8) Urine Color Yellow Urine Appearance Sl cloudy Urine pH 7.0 (4.5-8.0) Ur Specific [place] <=1.005 (1.000-1.035) Urine Protein 1+ H (Negative) Urine Glucose (UA) Negative (Negative) g/dL Urine Ketones Trace H (NEGATIVE) Urine Occult Blood Negative (Negative) Urine Nitrate Positive (Negative) Urine Bilirubin Negative (NEGATIVE) Urine Urobilinogen 0.2 (0.2) E.U./dL Ur Leukocyte Esterase Trace H (NEGATIVE) Urine RBC 0-1/hpf (0-5/HPF) Urine WBC 30-100/hpf H (0-5/HPF) Ur Squamous Epith Cells 0-1 /hpf (0-5/HPF) Urine Bacteria Many (>30) H (None) Ur Culture Indicated? Specimen cultured U Morph 300 ng/mL cutoff Negative (Negative) Ur Oxycodone Screen Negative (Negative) Urine Methadone Screen Negative (Negative) Ur Barbiturates Screen Negative (Negative) U Tricyclic Antidepress Negative (Negative) Ur Phencyclidine Scrn Negative (Negative) Ur Amphetamines Screen Negative (Negative) U Methamphetamines Scrn Negative (Negative) Ur MDMA Scrn (Ecstasy) Negative (Negative) U Benzodiazepines Scrn Negative (Negative) Urine Cocaine Screen Negative (Negative) U Marijuana (THC) Screen Negative (Negative) Imaging Data CT brain: Radiologist's impression: IMPRESSION: 1. 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 2. Moderate cerebral volume loss and chronic microvascular ischemic changes. 3. Left maxillary and sphenoid sinusitis. The result was discussed with Dr. Dill on 09/19/2019 at 1352 hours. Dictated by: Janett Sloan M.D. on 09/19/2019 at 13:49 CTA brain: Radiologist's impression: IMPRESSION: 1. Possible thrombus within an anterior M3 branch of the right middle cerebral artery. 2. Occluded left vertebral artery origin, of uncertain acuity. 3. Above findings discussed with Dr. Dill on 09.19.19 at 1435 hrs. 4. Chronic versus subacute right parietal infarct. Any quantitative measurements of stenosis were performed using NASCET criteria. Dictated by: Mallorie Quesada M.D. on 09/19/2019 at 14:30 ECG Data Attestation: I personally reviewed and interpreted this ECG as follows: Interpretation: Atrial fibrillation with rapid ventricular response at a rate of 140 MDM Narrative Medical decision making narrative: 83-year-old woman who lives independently with moderate help from a caregiver. Last known well was 11 30. Found 2 hours later with dense left hemiparesis and left-sided neglect. Due to the severity of her stroke as well as subacute infarct of the right parietal posterior temporal lobe seen on CT scan, she is not a tPA candidate. CTA suggests a right M2 occlusion that may be amenable to interventional radiology. For that reason she is being transferred to [facility] for further neurologic consultation and intervention. Findings have been reviewed with her son and power of research attorney. He is writing by flight tomorrow around noon to be immediately available. Patient remains in critical condition at time of transfer to [facility] via air left Critical Care Time Critical Care Time Critical Care Time: Yes Total Critical Care Time: 97 Attestation: Critical Care Time [97] minutes: Critical care time is separate from other billable procedures. This critical care time includes consultation with family and other consulting doctors, review of records, and interpretation of data from labs, EKGs and imaging as well as managements of acute stroke and neurologic compromise Discharge Plan Departure Patient Disposition: [facility] Clinical Impression: Atrial fibrillation with rapid ventricular response Cerebrovascular accident Qualifiers: CVA mechanism: thrombosis Precerebral and cerebral artery: middle cerebral artery Laterality of affected vessel: right Qualified Code(s): I63.311 - Cerebral infarction due to thrombosis of right middle cerebral artery Prescriptions: No Action cetirizine 10 MG tablet 10 mg PO DAILY PRN (Reason: Allergy Symptoms) Qty: 0 RF: 0 atorvastatin [Lipitor] 10 MG tablet 10 mg PO BEDTIME Qty: 0 RF: 0 aspirin 325 MG tablet,delayed release (DR/EC) 325 mg PO DAILY Qty: 0 RF: 0 folic acid 1 mg Tablet 1 mg PO DAILY Qty: 0 RF: 0 pyridoxine (vitamin B6) 100 mg Tablet 100 mg PO DAILY Qty: 0 RF: 0 ferrous sulfate 324 mg (65 mg iron) Tablet,Delayed Release (Dr/Ec) 324 mg PO DAILY Qty: 0 RF: 0 calcium carbonate [Calcium 500] 500 mg calcium (1,250 mg) Tablet 1,000 mg PO DAILY Qty: 0 RF: 0 calcitonin (salmon) 200 IU/PUFF spray,non-aerosol 1 puff NS DAILY Qty: 0 RF: 0 mirtazapine [Remeron] 30 mg Tablet 30 mg PO BEDTIME RF: 0 nystatin 100,000 unit/gram Cream 1 applic TOPICAL QID RF: 0 cholecalciferol (vitamin D3) [Vitamin D3] 1,000 unit Tablet 1,000 unit PO DAILY RF: 0 amlodipine 5 mg Tablet 5 mg PO DAILY RF: 0 diltiazem HCl 120 mg capsule,extended release 24hr 120 mg PO BID RF: 0 multivitamin Capsule 1 cap PO DAILY RF: 0 Referrals: Cira Cervantes MD [Primary Care Provider] -
--- NOTE | 2019-09-19 14:03 | DI.CT.S_ITS ---
PROCEDURE: CT ANGIO HEAD AND NECK INDICATIONS: acute CVA, concern for Large vessel, possible IR? TECHNIQUE: Pre-contrast 4.5 mm thick sections acquired from the foramen magnum to the vertex. After the administration of intravenous contrast, 1 mm thick sections acquired from the aortic arch through the [place] of [place]. Post-contrast 4.5 mm thick sections then re-acquired from the foramen magnum to the vertex. 3-dimensional trxxzxx-kakwwpmef-oesduoozei (MIP) and/or volume rendering reformats were acquired of the central intracranial vasculature and neck separately. COMPARISON: None. FINDINGS: Image quality: Excellent. BRAIN: CSF spaces: Ventricles are normal in size and shape. Basal cisterns are patent. No extra-axial fluid collections. Brain: No midline shift. There is a small subacute versus chronic infarct within the right parietal lobe. No intracranial bleeds or masses. Grace-white matter interface appears intact. Skull and face: Calvarium and facial bones appear intact, without suspicious lesions. Orbits appear normal. Sinuses: Mild left maxillary sinus mucosal thickening. Sinuses and mastoids are otherwise clear. HEAD CT ANGIOGRAPHY: Anterior circulation: Intracranial internal carotid arteries are normal in size and flow. The flow within the paired anterior cerebral arteries is normal and symmetric. There is mildly decreased density within the anterior insular branch of the right middle cerebral artery. The flow within the middle cerebral arteries is otherwise normal and symmetric. The anterior communicating artery is seen. No aneurysms are seen. Posterior circulation: Left distal vertebral artery is small in caliber. Right vertebral artery is patent. Basilar artery is patent. Flow within the posterior cerebral arteries is normal and symmetric. No aneurysms are seen. NECK CT ANGIOGRAPHY: Carotid system: The great vessels demonstrate a conventional anatomy as they arise from the aortic arch. The origins of the common carotid arteries appear patent. The common carotid arteries demonstrate normal caliber and courses. The bifurcation regions are both widely patent. There is mild, roughly 10% calcific stenosis of the right internal carotid artery origin, which is otherwise patent. Left internal carotid artery demonstrates roughly 10% calcific stenosis at its origin, and is otherwise patent. Right subclavian artery is widely patent. Left subclavian artery demonstrates a roughly 50% calcific origin stenosis, as well as mild diffuse calcific stenosis within this remainder. Posterior circulation: Right vertebral artery origin is patent. Left vertebral artery is occluded at its origin, and reconstitutes at the level of the C3-C4 disc space. The more superior extracranial portions of both vertebral arteries also demonstrate normal courses and calibers. They join to form a normal appearing basilar artery. Soft tissues: Biapical pulmonary scarring is present. The Visualized neck soft tissues demonstrate no suspicious abnormalities. Bones: No suspicious bony lesions. Visualized cervical spine appears normally aligned. IMPRESSION: 1. Possible thrombus within an anterior M3 branch of the right middle cerebral artery. 2. Occluded left vertebral artery origin, of uncertain acuity. 3. Above findings discussed with Dr. Dill on 09.19.19 at 1435 hrs. 4. Chronic versus subacute right parietal infarct. Any quantitative measurements of stenosis were performed using NASCET criteria. Dictated by: Mallorie Quesada M.D. on 09/19/2019 at 14:30 Approved by: Mallorie Quesada M.D. on 09/19/2019 at 14:42
[2019-09-19 14:23] LABS: Add Manual Diff / Slide Review NO; Basophils Absolute Auto 100 /uL (0-100); Basophils Percent Auto 0.5 % (0-2); Eosinophils Absolute Auto 200 /uL (0-450); Hematocrit 38.8 % (36-46); Hemoglobin 12.8 g/dL (12.0-16.0); Lymphocytes Absolute Auto 1600 /uL (1100-4500); Lymphocytes Percent Auto 13.9 % (25-40); Mean Corpuscular HGB Conc 33.1 % (30-36); Mean Corpuscular Hemoglobin 33.3 PG (26-34); Mean Corpuscular Volume 100.6 fL (80-100); Monocytes Absolute Auto 600 /uL (0-900); Monocytes Percent Auto 5.2 % (3-14); Neutrophils Absolute Auto 8900 /uL (1500-7000); Neutrophils Percent Auto 78.4 % (50-75); Platelet Count 348 X10^3/uL (150-400); Red Blood Cell Count 3.85 X10^6/uL (4.0-5.2); Red Cell Distribution Width 14.2 % (11.6-14.8); White Blood Cell Count 11.3 X10^3/uL (4.5-11.0)
[2019-09-19 14:24] LABS: INR 1.1 (0.9-1.3); Prothrombin Time 12.3 SECONDS (10.1-12.7)
[2019-09-19 14:27] LABS: PTT Partial Thromboplastin Tim 34 SECONDS (26.4-36.2)
[2019-09-19 14:29] LABS: Alanine Aminotransferase 14 IU/L (<35); Albumin 4.3 g/dL (3.5-5.0); Albumin Globulin Ratio 1.4 (1.0-2.8); Alkaline Phosphatase 60 U/L (38-126); Aspartate Aminotransferase 26 IU/L (14-36); Bilirubin Total 0.5 mg/dL (0.2-1.3); Blood Urea Nitrogen 36 mg/dL (7-17); Calcium 10.1 mg/dL (8.4-10.2); Carbon Dioxide 20 mmol/L (22-32); Chloride 102 mmol/L (98-107); Estimated Glomerular Filt Rate 33.2 mL/min (>60); Glucose 170 mg/dL (80-110); HEMOLYSIS < 15 (0-50); Potassium 4.1 mmol/L (3.4-5.1); Sodium 137 mmol/L (137-145); Total Protein 7.3 g/dL (6.3-8.2)
[2019-09-19 14:45] LABS: Appearance Urine UA SL CLOUDY; Bilirubin Urine UA NEGATIVE (NEGATIVE); Color Urine UA YELLOW; Glucose Urine UA NEGATIVE (Negative); Ketones Urine UA TRACE (NEGATIVE); Leukocyte Esterase Urine UA TRACE (NEGATIVE); Nitrite Urine UA POSITIVE (Negative); Occult Blood Urine UA NEGATIVE (Negative); Protein Urine UA 1+ (Negative); Specific Gravity Urine UA <=1.005 (1.000-1.035); Urobilinogen Urine UA 0.2 E.U./dL (0.2)
[2019-09-19 14:52] LABS: UR Morphine/Opiate cutoff 300 Negative (Negative); Ur Creatinine Normal (Normal); Ur Specific Gravity Normal (Normal); Urine Amphetamines Negative (Negative); Urine Barbiturates Negative (Negative); Urine Benzodiazepines Negative (Negative); Urine Cocaine Negative (Negative); Urine MDMA Negative (Negative); Urine Methadone Negative (Negative); Urine Methamphetamines Negative (Negative); Urine Oxycodone Negative (Negative); Urine Phencyclidine Negative (Negative); Urine Tetrahydrocannabinol Negative (Negative); Urine Tricyclic Antidepressant Negative (Negative); Urine pH Normal (Normal)
[2019-09-19 14:53] LABS: Bacteria Urine Many (>30); RBC Urine 0-1/HPF (0-5/HPF); Squamous Epithelial Cell Urine 0-1 /HPF (0-5/HPF); WBC Urine 30-100/HPF (0-5/HPF)
[2019-09-19 14:54] LABS: Culture Indicated Urine Specimen Cultured
[2019-09-19] MEDS: SODIUM CHLORIDE 0.9% 1,000 ML 150 ML IV (15:12)
--- NOTE | 2019-09-26 21:03 | PC.NURSE ---
Late Entry: IV fluids running @ 150 cc hour d/c @ 1550 when flight team assumed care of patient. No ill effect.
== END 2019-09-19 15:52 | disposition short-term general hospital (02) ==
PROVIDERS: Emergency Provider Emergency Medicine; Family Provider Family Medicine; PCP Family Medicine
DX: I48.20 Chronic atrial fibrillation, unspecified (principal); I63.311 Cerebral infarction due to thrombosis of right middle cerebral artery
CPT/HCPCS: 36415; 51701; 70450; 70496; 70498; 80053; 80305; 81001; 85025; 85610; 85730; 87077; 87086; 87186; 93005; 93010; 96360; 99285; 99291; 99292; Q9967